=== PATIENT | female | born 1980 | race Caucasian/White ===

== ENCOUNTER 2021-07-22 16:35 | Inpatient (IN) | payer BC ==
--- NOTE | 2021-07-22 16:50 | EDM.PDOC ---
ED HPI GENERAL MEDICAL PROBLEM - General Chief Complaint: Respiratory Problem Stated Complaint: COVID + Time Seen by Provider: 07/22/21 16:50 Source of Information: Reports: Patient, Family History Limitations: Reports: No Limitations - History of Present Illness INITIAL COMMENTS - FREE TEXT/NARRATIVE: Marva, 40-year-old female, presents per pedis accompanied by her spouse to the emergency department with increasing shortness of breath, worsening symptoms with decrease in appetite and mild GI symptoms. She is known Covid 19 positive. Positive Covid test on the 16 July with symptoms developing on the . States she was seen in the [place] emergency department on the 19 July and was discharged home as there was no evidence of pneumonia and she was told things were in a normal perspective. Is not COVID-19 vaccinated General malaise with change in appetite no significant fever, low grade if any. Feels severe fatigue/weakness. 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 Treatments - Related Data Allergies Allergy/AdvReac Type Severity Reaction Status Date / Time bee pollen Allergy Hives Verified 07/22/21 16:46 venom-honey bee Allergy Hives Verified 07/22/21 16:46 [bee venom (honey bee)] Home Meds: Home Meds EPINEPHrine [Epipen] 0.3 mg IM ASDIRECTED PRN 11/21/17 [History] Acetaminophen [Tylenol] 650 mg PO Q4H PRN tablet 11/22/17 [Rx] Levothyroxine 175 mcg PO ACBREAKFAST #60 tablet 11/22/17 [Rx] Albuterol Sulfate [Albuterol Sulfate Hfa] 1 - 2 puff INH Q4HR PRN 07/19/21 [History] Benzonatate [Tessalon Perles] 100 mg PO ASDIRECTED PRN 07/19/21 [History] Ipratropium/Albuterol Sulfate [Iprat-Albut 0.5-3(2.5) MG/3 ML] 3 ml IH Q4HR PRN 07/19/21 [History] Naproxen Sodium [Aleve] 220 mg PO BID 07/19/21 [History] Past Medical History HEENT History: Reports: Impaired Vision, Other (See Below) Other HEENT History: Patient wears glasses and soft contact lenses Cardiovascular History: Reports: Arrhythmia, Other (See Below) Other Cardiovascular History: Reurrent tachycardia of unknown type or etiology. Repolarization changes with borderline incomplete right bundle branch block. 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: , Spontaneous Musculoskeletal History: Reports: None Neurological History: Reports: None Psychiatric History: Reports: Anxiety, Depression Endocrine/Metabolic History: Reports: Hyperthyroidism, Hypothyroidism, Other (See Below) Other Endocrine/Metabolic History: Treatment of hyperthyroidism with treatment as below in 2005 with secondary hypothyroidism Hematologic History: Reports: None Immunologic History: Reports: None Oncologic (Cancer) History: Reports: Other (See Below) Other Oncologic History: Unknown type of skin cancer on nose, 2005 Dermatologic History: Reports: Other (See Below) Other Dermatologic History: Acne vulgaris - Infectious Disease History Infectious Disease History: Reports: Chicken Pox, Shingles - Past Surgical History Head Surgeries/Procedures: Reports: None HEENT Surgical History: Reports: Oral Surgery, Other (See Below) Other HEENT Surgeries/Procedures: [place] teeth extraction at about age 10 Cardiovascular Surgical History: Reports: None Respiratory Surgical History: Reports: None GI Surgical History: Reports: None Female Surgical History: Reports: None Endocrine Surgical History: Reports: Other (See Below) Other Endocrine Surgeries/Procedures: Radioactive iodine treatment for hyperthyroidism in 2005 Neurological Surgical History: Reports: None Oncologic Surgical History: Reports: None Dermatological Surgical History: Reports: Other (See Below) - Past Imaging History Past Imaging History: Reports: Ultrasound, Other (See Below) (Thyroid ultrasound in 2005. Right upper quadrant ultrasound on 05/23/15). Denies: Event Monitor, Holter Monitor, Stress Testing Social & Family History - Family History Family Medical History: No Pertinent Family History HEENT: Reports: Glaucoma, Other (See Below) Other HEENT Family History: Maternal grandmother with glaucoma Cardiac: Reports: High Cholesterol Other Cardiac Family History: Maternal uncle with hyperlipidemia. Father and sister with hypertension Respiratory: Reports: Asthma, Other (See Below) Other Respiratory Family Hisory: Maternal grandmother with asthma GI: Reports: None : Reports: None OBGYN: Reports: None Musculoskeletal: Reports: None Neurological: Reports: Alzheimers Disease, Dementia, Other (See Below) Other Neurological Family History: Organic brain syndrome in paternal grandmother Psychiatric: Reports: None Endocrine/Metabolic: Reports: Diabetes, type II, IDDM, Other (See Below) Other Endocrine/Metabolic Family History: Paternal grandfather with IDDM Hematologic: Reports: Anemia, Transfusion Reaction Other Hematologic Family History: Maternal uncle with anemia and blood transfusions secondary to leukemia as below Immunologic: Reports: None Dermatologic: Reports: None Oncologic: Reports: Leukemia, Other (See Below) Other Oncologic Family History: Maternal uncle with fatal leukemia at age 74 - Tobacco Use Tobacco Use Status *Q: Former Tobacco User Tobacco Use Within Last Twelve Months: Cigarettes - Caffeine Use Caffeine Use: Reports: Coffee - Sexual History Sexual History: Reports: Sexually Active, Single Partner - Living Situation & Occupation Living situation: Reports: (Divorce in 2016 with one child from that relationship), with Significant Other Occupation: Employed ([employer]) ED ROS GENERAL - Review of Systems Review Of Systems: Comprehensive ROS is negative, except as noted in HPI. ED EXAM, GENERAL - Physical Exam Exam: See Below Free Text/Narrative:: Alert, oriented, in mild distress. There is no cyanosis nor pallor noted. There is no involvement of the auditory canals or tympanic membranes. [place] moist mucous membranes somewhat dry in comparison with no erythema nor exudate.. Neck is soft supple with no lymphadenopathy, no rigidity appreciated. Thorax is raspy mildly diminished bases with no wheezes nor crackles at this time. Cardiac is S1-S2 I do not appreciate murmur. There is no flank pain bowel sounds are present abdomen is irritated but no point tenderness. There is no edema to the lower extremities radial pulse correlates with apical heart rate and she is able to move about upon command. #1 Interpretation EKG Date: 07/22/21 Time: 17:21 Rhythm: NSR Rate (Beats/Min): 97 [place]: Normal P-Wave: Present QRS: Normal ST-T: Normal QT: Normal Comparison: No Change (rate change only) Course - Vital Signs Last Recorded V/S: Last Vital Signs Temp 97.7 F 07/22/21 20:16 Pulse 88 07/22/21 20:16 Resp 18 07/22/21 20:16 BP 100/73 07/22/21 20:16 Pulse Ox 98 07/22/21 20:16 - Orders/Labs/Meds Orders: Active Orders 24 hr Category Date Time Status Peripheral IV Care [RC] . DIRECTED Care 07/22/21 16:59 Active Sodium Chloride 0.9% [Saline Flush] Med 07/22/21 16:58 Active 10 ml FLUSH Q8HR PRN Peripheral IV Insertion Adult [OM.PC] Stat Oth 07/22/21 16:58 Ordered EKG 12 Lead [EK] Stat Ther 07/22/21 16:59 Ordered Medication Orders Acetaminophen (Acetaminophen 325 Mg Tab) 650 mg PO Q4H PRN PRN Reason: Pain (Mild 1-3)/fever Acetaminophen (Acetaminophen 325 Mg Tab) 650 mg PO Q4H PRN PRN Reason: Pain Albuterol (Albuterol 8 Gm Inhaler) gm INH Q4HR PRN PRN Reason: Shortness of Breath Benzonatate (Benzonatate 100 Mg Cap) 100 mg PO ASDIRECTED PRN PRN Reason: Cough Dexamethasone (Dexamethasone 10 Mg/Ml Sdv) 6 mg IVPUSH Q24H [facility] Enoxaparin Sodium (Enoxaparin 40 Mg/0.4 Ml Syringe) 40 mg SUBCUT DAILY [facility] Epinephrine HCl (Epinephrine 0.3 Mg/0.3 Ml Pen Autoinjector) 0.3 mg IM ASDIRECTED PRN PRN Reason: Bee Stings Sodium Chloride (Normal Saline) 1,000 mls @ 125 mls/hr IV ASDIRECTED REED Remdesivir 100 mg/ Sodium (Chloride) 250 mls @ 250 mls/hr IV Q24H [facility] Non-Formulary Medication (Levothyroxine [Levothyroxine]) 175 mcg PO ACBREAKFAST [facility] Ondansetron HCl (Ondansetron 4 Mg Tab.Dis) 8 mg PO Q6H PRN PRN Reason: nausea, able to take PO Sodium Chloride (Sodium Chloride 0.9% 10 Ml Syringe) 10 ml FLUSH Q8HR PRN PRN Reason: keep vein open Labs: Laboratory Tests 07/22/21 07/22/21 07/22/21 Range/Units 17:05 17:05 17:05 WBC 3.01 L (5.00-10.00) 10^3/uL RBC 4.98 (3.80-5.50) 10^6/uL Hgb 15.0 (12.0-16.0) g/dL Hct 45.7 (37.0-47.0) % MCV 91.8 (82.0-92.0) fL MCH 30.1 (27.0-31.0) pg MCHC 32.8 (32.0-36.0) g/dL RDW 11.7 (11.5-14.5) % Plt Count 125 L (150-400) 10^3/uL MPV 10.2 (7.4-10.4) fL Immature Gran % (Auto) 0.0 (0.0-5.0) % Neut % (Auto) 73.1 H (50.0-70.0) % Lymph % (Auto) 20.3 (20.0-40.0) % [place] % (Auto) 6.3 (2.0-8.0) % Eos % (Auto) 0.0 L (1.0-3.0) % Baso % (Auto) 0.3 (0.0-1.0) % Neut # (Auto) 2.20 L (2.50-7.00) 10^3/uL Lymph # (Auto) 0.61 L (1.00-4.00) 10^3/uL [place] # (Auto) 0.19 (0.10-0.80) 10^3/uL Eos # (Auto) 0.00 L (0.10-0.30) 10^3/uL Baso # (Auto) 0.01 (0.00-0.10) 10^3/uL Immature Gran # (Auto) 0.00 (0.00-0.50) 10^3/uL Atypical Lymphocytes Rare Toxic Granulation Few Platelet Estimate Decreased D-Dimer, Quantitative 451 H (<400) ng/mL Sodium 138 (136-145) mmol/L Potassium 3.9 (3.5-5.1) mmol/L Chloride 99 (98-107) mmol/L Carbon Dioxide 27.6 (21.0-32.0) mmol/L Anion Gap 15.3 H (5-15) mmol/L BUN 20 H (7-18) mg/dL Creatinine 0.92 (0.51-1.17) mg/dL Est Cr Clr Drug Dosing TNP Estimated GFR (MDRD) > 60 mL/min Glucose 104 (70-140) mg/dL Lactic Acid (0.4-2.0) mmol/L Calcium 7.5 L (8.7-10.3) mg/dL Total Bilirubin 0.4 (0.2-1.0) mg/dL AST 36 (15-37) U/L ALT 27 (14-63) U/L Alkaline Phosphatase 38 L (46-116) U/L Troponin I High Sens 5.700 (0-51.000) pg/mL Total Protein 6.5 (6.4-8.2) g/dL Albumin 2.81 L (3.40-5.00) g/dL 07/22/21 Range/Units 17:05 WBC (5.00-10.00) 10^3/uL RBC (3.80-5.50) 10^6/uL Hgb (12.0-16.0) g/dL Hct (37.0-47.0) % MCV (82.0-92.0) fL MCH (27.0-31.0) pg MCHC (32.0-36.0) g/dL RDW (11.5-14.5) % Plt Count (150-400) 10^3/uL MPV (7.4-10.4) fL Immature Gran % (Auto) (0.0-5.0) % Neut % (Auto) (50.0-70.0) % Lymph % (Auto) (20.0-40.0) % [place] % (Auto) (2.0-8.0) % Eos % (Auto) (1.0-3.0) % Baso % (Auto) (0.0-1.0) % Neut # (Auto) (2.50-7.00) 10^3/uL Lymph # (Auto) (1.00-4.00) 10^3/uL [place] # (Auto) (0.10-0.80) 10^3/uL Eos # (Auto) (0.10-0.30) 10^3/uL Baso # (Auto) (0.00-0.10) 10^3/uL Immature Gran # (Auto) (0.00-0.50) 10^3/uL Atypical Lymphocytes Toxic Granulation Platelet Estimate D-Dimer, Quantitative (<400) ng/mL Sodium (136-145) mmol/L Potassium (3.5-5.1) mmol/L Chloride (98-107) mmol/L Carbon Dioxide (21.0-32.0) mmol/L Anion Gap (5-15) mmol/L BUN (7-18) mg/dL Creatinine (0.51-1.17) mg/dL Est Cr Clr Drug Dosing Estimated GFR (MDRD) mL/min Glucose (70-140) mg/dL Lactic Acid 0.9 (0.4-2.0) mmol/L Calcium (8.7-10.3) mg/dL Total Bilirubin (0.2-1.0) mg/dL AST (15-37) U/L ALT (14-63) U/L Alkaline Phosphatase (46-116) U/L Troponin I High Sens (0-51.000) pg/mL Total Protein (6.4-8.2) g/dL Albumin (3.40-5.00) g/dL Meds: Medications Generic Name Dose Route Start Last Admin Trade Name Freq PRN Reason Stop Dose Admin Acetaminophen 650 mg 07/22/21 20:10 Acetaminophen 325 Mg Tab PO Q4H PRN Pain (Mild 1-3)/fever Acetaminophen 650 mg 07/22/21 21:12 Acetaminophen 325 Mg Tab PO Q4H PRN Pain Albuterol gm 07/22/21 21:12 Albuterol 8 Gm Inhaler INH Q4HR PRN Shortness of Breath Benzonatate 100 mg 07/22/21 21:12 Benzonatate 100 Mg Cap PO ASDIRECTED PRN Cough Dexamethasone 6 mg 07/22/21 20:15 Dexamethasone 10 Mg/Ml Sdv IVPUSH Q24H RE[facility] Enoxaparin Sodium 40 mg 07/22/21 20:15 Enoxaparin 40 Mg/0.4 Ml Syringe SUBCUT DAILY [facility] Epinephrine HCl 0.3 mg 07/22/21 21:12 Epinephrine 0.3 Mg/0.3 Ml Pen Autoinjector IM ASDIRECTED PRN Bee Stings Sodium Chloride 1,000 mls @ 125 mls/hr 07/22/21 20:15 Normal Saline IV ASDIRECTED REED Remdesivir 100 mg/ Sodium 250 mls @ 250 mls/hr 07/23/21 20:30 Chloride IV Q24H [facility] Non-Formulary Medication 175 mcg 07/23/21 07:30 Levothyroxine [Levothyroxine] PO ACBREAKFAST [facility] Ondansetron HCl 8 mg 07/22/21 20:10 Ondansetron 4 Mg Tab.Dis PO Q6H PRN nausea, able to take PO Sodium Chloride 10 ml 07/22/21 16:58 Sodium Chloride 0.9% 10 Ml Syringe FLUSH Q8HR PRN keep vein open Discontinued Medications Generic Name Dose Route Start Last Admin Trade Name Freq PRN Reason Stop Dose Admin Acetaminophen 1,000 mg 07/22/21 18:09 07/22/21 18:15 Acetaminophen 500 Mg Tab PO 07/22/21 18:10 1,000 mg ONETIME ONE Administration Sodium Chloride 1,000 mls @ 999 mls/hr 07/22/21 17:00 07/22/21 17:12 Normal Saline IV 07/22/21 18:00 999 mls/hr .BOLUS ONE Administration Remdesivir 200 mg/ Sodium 250 mls @ 250 mls/hr 07/22/21 20:18 Chloride IV 07/22/21 20:19 ONETIME ONE Departure - Departure Time of Disposition: 20:05 Disposition: Admitted As Inpatient 64 Condition: Fair Clinical Impression: Pneumonia due to COVID-19 virus, Hypoxia, COVID-19 COPD (chronic obstructive pulmonary disease) Qualifiers: COPD type: emphysema Emphysema type: panlobular Qualified Code(s): J43.1 - Panlobular emphysema - Discharge Information *PRESCRIPTION DRUG MONITORING PROGRAM REVIEWED*: Not Applicable *COPY OF PRESCRIPTION DRUG MONITORING REPORT IN PATIENT JEFF: Not Applicable Sepsis Event Note (ED) - Focused Exam Vital Signs: Vital Signs Temp Temp Pulse Resp BP Pulse Ox 07/22/21 19:20 97.2 F 83 18 106/64 95 07/22/21 19:05 85 18 102/64 88 L 07/22/21 18:15 100.5 F 07/22/21 18:02 100.9 F H 99 18 103/59 L 90 L 07/22/21 17:35 100.5 F 96 18 109/71 92 L 07/22/21 16:49 99.3 F 105 H 18 101/66 90 L - Problem List & Annotations (1) Cough SNOMED Code(s): 95715849 Code(s): R05.9 - COUGH, UNSPECIFIED Status: Acute Priority: High Current Visit: Yes (2) GI symptoms SNOMED Code(s): 367041097 Code(s): R19.8 - OTH SYMPTOMS AND SIGNS INVOLVING THE DGSTV SYS AND ABDOMEN Status: Acute Priority: High Current Visit: Yes (3) COVID-19 SNOMED Code(s): 304252518 Code(s): U07.1 - COVID-19 Status: Acute Priority: High Current Visit: Yes (4) COPD (chronic obstructive pulmonary disease) SNOMED Code(s): 94091080 Code(s): J44.9 - CHRONIC OBSTRUCTIVE PULMONARY DISEASE, UNSPECIFIED Status: Chronic Priority: Medium Current Visit: Yes Onset Date: ~11/21/17 Annotation/Comment:: Smoking cessation ? 3 weeks? Qualifiers: COPD type: emphysema Emphysema type: panlobular Qualified Code(s): J43.1 - Panlobular emphysema (5) Pneumonia due to COVID-19 virus SNOMED Code(s): 540569152049612758 Code(s): U07.1 - COVID-19; J12.82 - PNEUMONIA DUE TO CORONAVIRUS DISEASE 2019 Status: Acute Priority: High Current Visit: Yes (6) Hypoxia SNOMED Code(s): 757604262 Code(s): R09.02 - HYPOXEMIA Status: Acute Priority: High Current Visit: Yes - Problem List Review Problem List Initiated/Reviewed/Updated: Yes - My Orders Last 24 Hours: My Active Orders 07/22/21 16:58 Sodium Chloride 0.9% [Saline Flush] 10 ml FLUSH Q8HR PRN Peripheral IV Insertion Adult [OM.PC] Stat 07/22/21 16:59 Peripheral IV Care [RC] . DIRECTED EKG 12 Lead [EK] Stat - Assessment/Plan Admission H&P: Please use this note as an admission H&P Last 24 Hours: My Active Orders 07/22/21 16:58 Sodium Chloride 0.9% [Saline Flush] 10 ml FLUSH Q8HR PRN Peripheral IV Insertion Adult [OM.PC] Stat 07/22/21 16:59 Peripheral IV Care [RC] . DIRECTED EKG 12 Lead [EK] Stat Plan: .Discussion with Dr. Dockery will admit and institute remdesivir dexamethasone and enoxaparin
[2021-07-22] MEDS ORDERED: Sodium Chloride 0.9% 10 ML Syringe FLUSH PRN (16:58)
[2021-07-22] MEDS ORDERED: Sodium Chloride 0.9% 1,000 ML IV ONE (17:00)
[2021-07-22 17:40] LABS: ANION GAP 15.3 mmol/L (5-15); CHLORIDE,CL 99 mmol/L (98-107); SODIUM,NA 138 mmol/L (136-145)
--- NOTE | 2021-07-22 18:01 | CR ---
[id number] RAD/RAD Chest PA or AP 1V EXAM: FRONTAL CHEST INDICATION: COVID POSITIVE; POSITIVE TEST 07-16-2021. COMPARISON: None. DISCUSSION: Patchy bilateral basal predominant infiltrates consistent with the clinical history of COVID pneumonia. Normal heart size. No effusions. IMPRESSION: 1. Multifocal bilateral infiltrates. Josue Wilkinson MD 07/22/21 1390 Thank you for allowing us to participate in the care of your patient.
[2021-07-22] MEDS ORDERED: Acetaminophen 500 MG Tab PO ONE (18:09)
[2021-07-22] MEDS ORDERED: Ondansetron 4 MG Tab.DIS PO PRN (20:10)
[2021-07-22] MEDS ORDERED: Acetaminophen 325 MG Tab PO PRN ×2 (20:10→21:12)
[2021-07-22] MEDS ORDERED: REMDESIVIR 200 MG in Sodium Chloride 0.9% 250 ML IV ONE (20:18)
[2021-07-22] MEDS ORDERED: Nitroglycerin 0.4 MG Tab.SL SL PRN (20:30)
[2021-07-22] MEDS ORDERED: Atropine 0.1 MG/ML 10 ML Syringe IVPUSH PRN (20:30)
[2021-07-22] MEDS ORDERED: EPINEPHrine 1:10,000 1 MG/10 ML Syringe IVPUSH PRN (20:30)
[2021-07-22] MEDS ORDERED: Lidocaine 2% 100 MG/5 ML Syringe IVPUSH PRN (20:30)
[2021-07-22] MEDS ORDERED: Albuterol 8 GM Inhaler INH PRN (21:12)
[2021-07-22] MEDS ORDERED: Benzonatate 100 MG Cap PO PRN (21:12)
[2021-07-22] MEDS ORDERED: EPINEPHrine 0.3 MG/0.3 ML Pen Autoinjector IM PRN (21:12)
[2021-07-22] MEDS: Enoxaparin 40 MG/0.4 ML Syringe SUBCUT SCH (21:29)
[2021-07-22] MEDS: Dexamethasone 10 MG/ML SDV IVPUSH SCH (21:29)
[2021-07-22] MEDS: Sodium Chloride 0.9% 1,000 ML IV SCH (21:37)
[2021-07-23] MEDS: Sodium Chloride 0.9% 1,000 ML IV SCH ×3 (05:59→22:46)
[2021-07-23] MEDS ORDERED: Non-Formulary Medication 1 Each (Levothyroxine [Levothyroxine] 175 MCG Tablet) PO SCH (07:30)
[2021-07-23] MEDS: Levothyroxine 50 MCG Tab PO SCH (07:42)
[2021-07-23 08:16] LABS: ANION GAP 16.8 mmol/L (5-15); CHLORIDE,CL 106 mmol/L (98-107); SODIUM,NA 144 mmol/L (136-145)
[2021-07-23] MEDS: Enoxaparin 40 MG/0.4 ML Syringe SUBCUT SCH (11:15)
--- NOTE | 2021-07-23 12:03 | PCM.HP.2 ---
H&P History of Present Illness - General Date of Service: 07/23/21 Admit Problem/Dx: Admission Diagnosis/Problem Admission Diagnosis/Problem Pneumonia Source of Information: Patient - History of Present Illness Initial Comments - Free Text/Narative: 40 year old female admitted inpatient for COVID 19 pneumonia and hypoxia from ED on 07/22/2021. Symptoms started on 07/15/2021 and patient tested positive the following day. She had been doing ok at home when over the last 48 hours developed severe fatigue and some shortness of breath. She presented to the ED via personal car with who is also COVID positive and was subsequently admitted for hypoxia. - Related Data Allergies/Adverse Reactions: Allergies Allergy/AdvReac Type Severity Reaction Status Date / Time bee pollen Allergy Hives Verified 07/22/21 16:46 venom-honey bee Allergy Hives Verified 07/22/21 16:46 [bee venom (honey bee)] Home Medications: Home Meds EPINEPHrine [Epipen] 0.3 mg IM ASDIRECTED PRN 11/21/17 [History] Acetaminophen [Tylenol] 650 mg PO Q4H PRN tablet 11/22/17 [Rx] Levothyroxine 175 mcg PO ACBREAKFAST #60 tablet 11/22/17 [Rx] Albuterol Sulfate [Albuterol Sulfate Hfa] 1 - 2 puff INH Q4HR PRN 07/19/21 [History] Benzonatate [Tessalon Perles] 100 mg PO ASDIRECTED PRN 07/19/21 [History] Ipratropium/Albuterol Sulfate [Iprat-Albut 0.5-3(2.5) MG/3 ML] 3 ml IH Q4HR PRN 07/19/21 [History] Naproxen Sodium [Aleve] 220 mg PO BID 07/19/21 [History] Past Medical History HEENT History: Reports: Impaired Vision, Other (See Below) Other HEENT History: Patient wears glasses and soft contact lenses Cardiovascular History: Reports: Arrhythmia, Other (See Below) Other Cardiovascular History: Reurrent tachycardia of unknown type or etiology. Repolarization changes with borderline incomplete right bundle branch block. 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: , Spontaneous Musculoskeletal History: Reports: None Neurological History: Reports: None Psychiatric History: Reports: Anxiety, Depression Endocrine/Metabolic History: Reports: Hyperthyroidism, Hypothyroidism, Other (See Below) Other Endocrine/Metabolic History: Treatment of hyperthyroidism with treatment as below in 2006 with secondary hypothyroidism Hematologic History: Reports: None Immunologic History: Reports: None Oncologic (Cancer) History: Reports: Other (See Below) Other Oncologic History: Unknown type of skin cancer on nose, 2005 Dermatologic History: Reports: Other (See Below) Other Dermatologic History: Acne vulgaris - Infectious Disease History Infectious Disease History: Reports: Chicken Pox, Shingles - Past Surgical History Head Surgeries/Procedures: Reports: None HEENT Surgical History: Reports: Oral Surgery, Other (See Below) Other HEENT Surgeries/Procedures: Kinsey teeth extraction at about age 10 Cardiovascular Surgical History: Reports: None Respiratory Surgical History: Reports: None GI Surgical History: Reports: None Female Surgical History: Reports: None Endocrine Surgical History: Reports: Other (See Below) Other Endocrine Surgeries/Procedures: Radioactive iodine treatment for hyperthyroidism in 2005 Neurological Surgical History: Reports: None Oncologic Surgical History: Reports: None Dermatological Surgical History: Reports: Other (See Below) - Past Imaging History Past Imaging History: Reports: Ultrasound, Other (See Below) (Thyroid ultrasound in 2005. Right upper quadrant ultrasound on 05/23/15). Denies: Event Monitor, Holter Monitor, Stress Testing Social & Family History - Family History HEENT: Reports: Glaucoma, Other (See Below) Other HEENT Family History: Maternal grandmother with glaucoma Cardiac: Reports: High Cholesterol Other Cardiac Family History: Maternal uncle with hyperlipidemia. Father and sister with hypertension Respiratory: Reports: Asthma, Other (See Below) Other Respiratory Family Hisory: Maternal grandmother with asthma GI: Reports: None : Reports: None OBGYN: Reports: None Musculoskeletal: Reports: None Neurological: Reports: Alzheimers Disease, Dementia, Other (See Below) Other Neurological Family History: Organic brain syndrome in paternal grandmother Psychiatric: Reports: None Endocrine/Metabolic: Reports: Diabetes, type II, IDDM, Other (See Below) Other Endocrine/Metabolic Family History: Paternal grandfather with IDDM Hematologic: Reports: Anemia, Transfusion Reaction Other Hematologic Family History: Maternal uncle with anemia and blood transfusions secondary to leukemia as below Immunologic: Reports: None Dermatologic: Reports: None Oncologic: Reports: Leukemia, Other (See Below) Other Oncologic Family History: Maternal uncle with fatal leukemia at age 74 - Tobacco Use Tobacco Use Status *Q: Former Tobacco User Years of Tobacco use: 13 Packs/Tins Daily: 1 Used Tobacco, but Quit: Yes Month/Year Tobacco Last Used: 10 - Caffeine Use Caffeine Use: Reports: Coffee, Soda - Alcohol Use Days Per Week of Alcohol Use: 3 Number of Drinks Per Day: 3 Total Drinks Per Week: 9 - Recreational Drug Use Recreational Drug Use: No - Sexual History Sexual History: Reports: Sexually Active, Single Partner - Living Situation & Occupation Living situation: Reports: (Divorce in 2016 with one child from that relationship), with Significant Other Occupation: Employed ([employer]) H&P Review of Systems - Review of Systems: Review Of Systems: See Below Free Text/Narrative: Patient reports some improvement overnight, especially with the oxygen in place. General: Reports: Chills, Weakness, Fatigue, Decreased Appetite. Denies: Fever HEENT: Reports: Headaches, Sore Throat. Denies: Ear Pain Pulmonary: Reports: Shortness of Breath (when not on oxygen), Wheezing, Cough Cardiovascular: Denies: Chest Pain, Palpitations, Edema Gastrointestinal: Reports: Decreased Appetite. Denies: Abdominal Pain, Bloody Stool, Constipation, Diarrhea, Nausea, Vomiting Genitourinary: Denies: Dysuria, Frequency, Urgency, Hematuria Musculoskeletal: Denies: Neck Pain, Back Pain, Joint Swelling Skin: Denies: Pallor, Bruising, Rash Psychiatric: Denies: Confusion, Depression, Anxiety Exam - Exam Exam: See Below - Vital Signs Vital Signs: Last Vital Signs Temp 35.8 C L 07/23/21 06:06 Pulse 71 07/23/21 06:06 Resp 22 H 07/23/21 06:06 BP 96/67 07/23/21 06:06 Pulse Ox 92 L 07/23/21 06:06 Weight: 57.209 kg - Exam Physical Exam Comments:: GENERAL: Ill-appearing adult in no acute distress. HEENT: Normocephalic, atraumatic. Conjunctiva clear. Nares patent without discharge. Mucous membranes dry, posterior pharynx unremarkable. NECK: Supple, no masses. CV: Regular rate and rhythm, no murmurs, rubs, or gallops. 2+ radial pulses. PULMONARY: Normal effort, diminished with crackles mid to bases bilaterally. There are expiratory wheezes noted in the upper airways. Nasal cannula 3L ABDOMEN: Positive bowel sounds, soft, nontender, nondistended. EXTREMITIES: No edema, cyanosis, or clubbing. MUSCULOSKELETAL: Moves all extremities well. NEUROLOGICAL: No obvious deficits. DERMATOLOGIC: No rashes or suspicious lesions in exposed areas. PSYCHIATRIC: Alert, interactive, appropriate affect. - Patient Data Lab Results Last 24 hrs: Laboratory Results - last 24 hr 07/22/21 07/22/21 07/22/21 Range/Units 17:05 17:05 17:05 WBC 3.01 L (5.00-10.00) 10^3/uL RBC 4.98 (3.80-5.50) 10^6/uL Hgb 15.0 (12.0-16.0) g/dL Hct 45.7 (37.0-47.0) % MCV 91.8 (82.0-92.0) fL MCH 30.1 (27.0-31.0) pg MCHC 32.8 (32.0-36.0) g/dL RDW 11.7 (11.5-14.5) % Plt Count 125 L (150-400) 10^3/uL MPV 10.2 (7.4-10.4) fL Immature Gran % (Auto) 0.0 (0.0-5.0) % Neut % (Auto) 73.1 H (50.0-70.0) % Lymph % (Auto) 20.3 (20.0-40.0) % [place] % (Auto) 6.3 (2.0-8.0) % Eos % (Auto) 0.0 L (1.0-3.0) % Baso % (Auto) 0.3 (0.0-1.0) % Neut # (Auto) 2.20 L (2.50-7.00) 10^3/uL Lymph # (Auto) 0.61 L (1.00-4.00) 10^3/uL [place] # (Auto) 0.19 (0.10-0.80) 10^3/uL Eos # (Auto) 0.00 L (0.10-0.30) 10^3/uL Baso # (Auto) 0.01 (0.00-0.10) 10^3/uL Immature Gran # (Auto) 0.00 (0.00-0.50) 10^3/uL Atypical Lymphocytes Rare Toxic Granulation Few Platelet Estimate Decreased D-Dimer, Quantitative 451 H (<400) ng/mL Sodium 138 (136-145) mmol/L Potassium 3.9 (3.5-5.1) mmol/L Chloride 99 (98-107) mmol/L Carbon Dioxide 27.6 (21.0-32.0) mmol/L Anion Gap 15.3 H (5-15) mmol/L BUN 20 H (7-18) mg/dL Creatinine 0.92 (0.51-1.17) mg/dL Est Cr Clr Drug Dosing TNP Estimated GFR (MDRD) > 60 mL/min Glucose 104 (70-140) mg/dL Lactic Acid (0.4-2.0) mmol/L Calcium 7.5 L (8.7-10.3) mg/dL Total Bilirubin 0.4 (0.2-1.0) mg/dL AST 36 (15-37) U/L ALT 27 (14-63) U/L Alkaline Phosphatase 38 L (46-116) U/L Troponin I High Sens 5.700 (0-51.000) pg/mL Total Protein 6.5 (6.4-8.2) g/dL Albumin 2.81 L (3.40-5.00) g/dL 07/22/21 07/23/21 07/23/21 Range/Units 17:05 07:25 07:25 WBC 1.49 L* (5.00-10.00) 10^3/uL RBC 4.68 (3.80-5.50) 10^6/uL Hgb 14.2 (12.0-16.0) g/dL Hct 43.3 (37.0-47.0) % MCV 92.5 H (82.0-92.0) fL MCH 30.3 (27.0-31.0) pg MCHC 32.8 (32.0-36.0) g/dL RDW 11.6 (11.5-14.5) % Plt Count 111 L (150-400) 10^3/uL MPV 10.4 (7.4-10.4) fL Immature Gran % (Auto) 0.7 (0.0-5.0) % Neut % (Auto) 66.4 (50.0-70.0) % Lymph % (Auto) 26.2 (20.0-40.0) % [place] % (Auto) 6.0 (2.0-8.0) % Eos % (Auto) 0.0 L (1.0-3.0) % Baso % (Auto) 0.7 (0.0-1.0) % Neut # (Auto) 0.99 L (2.50-7.00) 10^3/uL Lymph # (Auto) 0.39 L (1.00-4.00) 10^3/uL [place] # (Auto) 0.09 L (0.10-0.80) 10^3/uL Eos # (Auto) 0.00 L (0.10-0.30) 10^3/uL Baso # (Auto) 0.01 (0.00-0.10) 10^3/uL Immature Gran # (Auto) 0.01 (0.00-0.50) 10^3/uL Atypical Lymphocytes Toxic Granulation Platelet Estimate Decreased D-Dimer, Quantitative (<400) ng/mL Sodium 144 (136-145) mmol/L Potassium 3.7 (3.5-5.1) mmol/L Chloride 106 (98-107) mmol/L Carbon Dioxide 24.9 (21.0-32.0) mmol/L Anion Gap 16.8 H (5-15) mmol/L BUN 18 (7-18) mg/dL Creatinine 0.56 (0.51-1.17) mg/dL Est Cr Clr Drug Dosing 117.76 Estimated GFR (MDRD) > 60 mL/min Glucose 126 (70-140) mg/dL Lactic Acid 0.9 (0.4-2.0) mmol/L Calcium 6.9 L (8.7-10.3) mg/dL Total Bilirubin 0.2 (0.2-1.0) mg/dL AST 47 H (15-37) U/L ALT 32 (14-63) U/L Alkaline Phosphatase 34 L (46-116) U/L Troponin I High Sens (0-51.000) pg/mL Total Protein 5.8 L (6.4-8.2) g/dL Albumin 2.34 L (3.40-5.00) g/dL Result Diagrams: 07/23/21 07:25 07/23/21 07:25 Sepsis Event Note - Evaluation Sepsis Screening Result: No Definite Risk - Focused Exam Vital Signs: Vital Signs Temp Pulse Resp BP Pulse Ox 07/23/21 06:06 35.8 C L 71 22 H 96/67 92 L 07/23/21 03:00 35.4 C L 66 18 96/60 90 L Problem List Initiated/Reviewed/Updated: Yes Orders Last 24hrs: Active Orders 24 hr Category Date Time Status Patient Status [ADT] Routine ADT 07/22/21 20:06 Active Cardiac Monitoring [RC] 07,11,15,19,23,03 Care 07/22/21 20:06 Active Intake and Output [RC] 1400,2200,0600 Care 07/22/21 20:10 Active Oxygen Therapy [RC] .PRN Care 07/22/21 20:10 Active Peripheral IV Care [RC] . DIRECTED Care 07/22/21 16:59 Active RT Post Treatment Assessment [RC] Click to Edit Care 07/22/21 21:14 Active RT Pre-Treatment Assessment [RC] Click to Edit Care 07/22/21 21:14 Active Up With Assistance [RC] ASDIRECTED Care 07/22/21 20:10 Active Vital Signs [RC] 03,07,11,15,19,23 Care 07/22/21 20:10 Active CBC WITH AUTO DIFF [HEME] AM Lab 07/24/21 05:11 Ordered CMP [COMPREHENSIVE METABOLIC PN,CMP] [CHEM] AM Lab 07/24/21 05:11 Ordered CRP [C-REACTIVE PROTEIN] [CHEM] AM Lab 07/24/21 05:11 Ordered MAGNESIUM [CHEM] AM Lab 07/24/21 05:11 Ordered PROCALCITONIN [REF] Routine Lab 07/23/21 11:58 Ordered Acetaminophen [TylenoL] Med 07/22/21 21:12 Active 650 mg PO Q4H PRN Albuterol [Ventolin HFA] Med 07/23/21 01:45 Active 0 gm INH Q4H PRN Ascorbic Acid [Vitamin C] Med 07/23/21 12:00 Ordered 1,000 mg PO BID Atropine [Atropine 0.1 MG/ML] Med 07/22/21 20:30 Active 0.5 - 1 mg IVPUSH ASDIRECTED PRN Benzonatate [Tessalon Perles] Med 07/22/21 21:12 Active 100 mg PO ASDIRECTED PRN Cholecalciferol (Vitamin D3) [Vitamin D3] Med 07/23/21 12:00 Ordered 25 mcg PO DAILY EPINEPHrine [EPINEPHrine 1:10,000] Med 07/22/21 20:30 Active 1 mg IVPUSH ASDIRECTED PRN EPINEPHrine [Epipen] Med 07/22/21 21:12 Active 0.3 mg IM ASDIRECTED PRN Enoxaparin [Lovenox] Med 07/22/21 20:15 Active 40 mg SUBCUT DAILY Levothyroxine [Synthroid] Med 07/23/21 07:30 Active 175 mcg PO ACBREAKFAST Lidocaine 2% [Xylocaine 2%] Med 07/22/21 20:30 Active See Dose Instructions IVPUSH ASDIRECTED PRN Nitroglycerin [Nitrostat] Med 07/22/21 20:30 Active 0.4 mg SL ASDIRECTED PRN Ondansetron [Zofran ODT] Med 07/22/21 20:10 Active 8 mg PO Q6H PRN Remdesivir 100 mg Med 07/23/21 20:30 Active Sodium Chloride 0.9% [Normal Saline] 250 ml IV Q24H Sodium Chloride 0.9% [Normal Saline] 1,000 ml Med 07/22/21 20:15 Active IV ASDIRECTED Sodium Chloride 0.9% [Saline Flush] Med 07/22/21 16:58 Active 10 ml FLUSH Q8HR PRN Zinc Gluconate [Zinc] Med 07/23/21 12:00 Ordered 50 mg PO DAILY dexAMETHasone [Decadron] Med 07/22/21 20:15 Active 6 mg IVPUSH Q24H Peripheral IV Insertion Adult [OM.PC] Stat Oth 07/22/21 16:58 Ordered Resuscitation Status Routine Resus Stat 07/22/21 20:10 Ordered EKG 12 Lead [EK] Stat Ther 07/22/21 16:59 Ordered Medication Orders Acetaminophen (Acetaminophen 325 Mg Tab) 650 mg PO Q4H PRN PRN Reason: Pain Albuterol (Albuterol 8 Gm Inhaler) 0 gm INH Q4H PRN PRN Reason: Shortness of Breath Atropine Sulfate (Atropine 0.1 Mg/Ml 10 Ml Syringe) 0.5 - 1 mg IVPUSH A SDIRECTED PRN PRN Reason: Heart. Benzonatate (Benzonatate 100 Mg Cap) 100 mg PO ASDIRECTED PRN PRN Reason: Cough Dexamethasone (Dexamethasone 10 Mg/Ml Sdv) 6 mg IVPUSH Q24H [facility] Last Admin: 07/22/21 21:29 Dose: 6 mg Documented by: CINTHIA Enoxaparin Sodium (Enoxaparin 40 Mg/0.4 Ml Syringe) 40 mg SUBCUT DAILY [facility] Last Admin: 07/23/21 11:15 Dose: 40 mg Documented by: Admin: 07/22/21 21:29 Dose: 40 mg Documented by: CINTHIA Epinephrine HCl (Epinephrine 0.3 Mg/0.3 Ml Pen Autoinjector) 0.3 mg IM ASDIRECTED PRN PRN Reason: Bee Stings Epinephrine HCl (Epinephrine 1:10,000 1 Mg/10 Ml Syringe) 1 mg IVPUSH ASDIRECTED PRN PRN Reason: Heart. Sodium Chloride (Normal Saline) 1,000 mls @ 125 mls/hr IV ASDIRECTED [facility] Last Admin: 07/23/21 05:59 Dose: 125 mls/hr Documented by: Infusion: 07/23/21 05:37 Dose: 125 mls/hr Documented by: Admin: 07/22/21 21:37 Dose: 125 mls/hr Documented by: CINTHIA Remdesivir 100 mg/ Sodium (Chloride) 250 mls @ 250 mls/hr IV Q24H [facility] Stop: 07/26/21 20:31 Levothyroxine Sodium (Levothyroxine 50 Mcg Tab) 175 mcg PO ACBREAKFAST [facility] Last Admin: 07/23/21 07:42 Dose: 175 mcg Documented by: JOSEFA Lidocaine HCl (Lidocaine 2% 100 Mg/5 Ml Syringe) 0 mg IVPUSH ASDIRECTED PRN PRN Reason: Heart. Nitroglycerin (Nitroglycerin 0.4 Mg Tab.Sl) 0.4 mg SL ASDIRECTED PRN PRN Reason: Heart. Ondansetron HCl (Ondansetron 4 Mg Tab.Dis) 8 mg PO Q6H PRN PRN Reason: nausea, able to take PO Sodium Chloride (Sodium Chloride 0.9% 10 Ml Syringe) 10 ml FLUSH Q8HR PRN PRN Reason: keep vein open Assessment/Plan Comment:: HPI summary: 40 year old female admitted inpatient for COVID 19 pneumonia and hypoxia from ED on 07/22/2021. Symptoms started on 07/15/2021 and patient tested positive the following day. She had been doing ok at home when over the last 48 hours developed severe fatigue and some shortness of breath. She presented to the ED via personal car with who is also COVID positive and was subsequently admitted for hypoxia. No COVID vaccine. Did not receive antibody infusion. ED course: -VS: T97.2, P 83, R18, BP 106/64, O2 sat 88%/RA; oxygen started -EKG: NSR -Lab: WBC 3.01, RBC 4.98, Hgb 15, Hct 45.7, Plt 125, Neut 73.1%, D-dimer 451, Na 138, K 3.9, Cl 99, Co2 27.6, anion gap 15.3, BUN 20, cr 0.92, GFR >60, lactic 0.9, Ca 7.5, LFT unremarkable, Alb 2.81 -CXR: multifocal bilateral infiltrates -NS 1000mL bolus -Remdesivir, Dexamethasone and enoxaparin initiated Hospital course: 07/23/2021: No overnight concerns per patient. Shortness of breath improving. Has begun eating and drinking. Decreased taste/smell. Afebrile. 92% on 3L/NC . WBC 1.49, Plt 111, anion gap 16.8, Ca 6.9, AST 47. Procalcitonin pending. Leukopenia and thrombocytopenia will be followed. Hospitalization problems and plan: # Acute hypoxic respiratory failure, R/T COVID 19 pneumonia - oxygen - albuterol inhaler - Remdesivir, dexamethasone, oral ondansetron - oral zinc, vit C and vit D - CMP, CRP, Mg in AM # Elevated D-dimer, mild 451, Wells score for PE 1.5 low risk - continue enoxaparin for now, monitor platelets - CBC in AM # Leukopenia # Thrombocytopenia # Hypothyroidism; per chart review last TSH 05/15/2021 was 14.71 - continue levothyroxine - recheck TSH in AM Chronic, stable conditions: # none Hospitalization details: # FEN: patient appears dry on exam continue NS 125mL/hr; electrolytes stable; tolerating oral intake # PPX: enoxaparin, monitor platelets # Code status: Full # Emergency contact: Andi spouse # Disposition: home after course of remdesivir, approx four midnights - Mortality Measure Prognosis:: Good
[2021-07-23] MEDS: Ascorbic Acid 500 MG Tab PO SCH ×2 (13:10→20:27)
[2021-07-23] MEDS: Cholecalciferol (Vitamin D3) 25 MCG Tab PO SCH (13:10)
[2021-07-23] MEDS: Zinc (Zinc Gluconate) 50 MG Tab PO SCH (13:10)
[2021-07-23] MEDS: Dexamethasone 10 MG/ML SDV IVPUSH SCH (20:21)
[2021-07-23] MEDS: REMDESIVIR 100 MG in Sodium Chloride 0.9% 250 ML IV SCH (20:27)
[2021-07-24] MEDS: Albuterol 8 GM Inhaler INH PRN ×2 (03:44→20:36)
[2021-07-24] MEDS: Levothyroxine 50 MCG Tab PO SCH ×2 (06:22→06:45)
[2021-07-24] MEDS: Sodium Chloride 0.9% 1,000 ML IV SCH (06:24)
[2021-07-24] MEDS: Ascorbic Acid 500 MG Tab PO SCH ×2 (08:55→20:38)
[2021-07-24] MEDS: Cholecalciferol (Vitamin D3) 25 MCG Tab PO SCH (08:55)
[2021-07-24] MEDS: Enoxaparin 40 MG/0.4 ML Syringe SUBCUT SCH (08:55)
[2021-07-24] MEDS: Zinc (Zinc Gluconate) 50 MG Tab PO SCH (08:56)
[2021-07-24 09:07] LABS: CHLORIDE,CL 107 mmol/L (98-107); SODIUM,NA 141 mmol/L (136-145)
--- NOTE | 2021-07-24 10:09 | PCM.PN ---
- General Info Date of Service: 07/24/21 Subjective Update: Patient reports pain over the anterior right lower chest with deep breaths, states this has been present for a while now. She denies abdominal pain or any other new symptoms. - Review of Systems Systems Review Comment:: General: Reports: Weakness, Fatigue, Decreased Appetite HEENT: Reports: Headaches, Sore Throat Pulmonary: Reports: Pleuritic chest pain over the anterior right lower chest, on supplemental oxygen, Cough Cardiovascular: Denies: Chest Pain, Palpitations, Edema Gastrointestinal: Reports: Decreased Appetite. Denies: Abdominal Pain, Bloody Stool, Constipation, Diarrhea, Nausea, Vomiting Genitourinary: Denies: Dysuria, Frequency, Urgency, Hematuria Musculoskeletal: Denies: Neck Pain, Back Pain, Joint Swelling Skin: Denies: Pallor, Bruising, Rash Psychiatric: Anxiety intermittently. Denies: Confusion, Depression - Patient Data Vitals - Most Recent: Last Vital Signs Temp 97.4 F 07/24/21 06:26 Pulse 80 07/24/21 06:26 Resp 20 07/24/21 06:26 BP 112/73 07/24/21 06:26 Pulse Ox 91 L 07/24/21 06:26 Weight - Most Recent: 126 lb 2 oz I&O - Last 24 Hours: Intake & Output 07/23/21 07/24/21 07/24/21 22:59 06:59 14:59 Intake Total 848 1932 Output Total 400 700 Balance 448 1232 Lab Results Last 24 Hours: Laboratory Results - last 24 hr 07/24/21 07/24/21 Range/Units 07:00 07:25 WBC 3.71 L (5.00-10.00) 10^3/uL RBC 4.74 (3.80-5.50) 10^6/uL Hgb 14.5 (12.0-16.0) g/dL Hct 43.4 (37.0-47.0) % MCV 91.6 (82.0-92.0) fL MCH 30.6 (27.0-31.0) pg MCHC 33.4 (32.0-36.0) g/dL RDW 11.7 (11.5-14.5) % Plt Count 157 (150-400) 10^3/uL MPV 10.2 (7.4-10.4) fL Immature Gran % (Auto) 0.5 (0.0-5.0) % Neut % (Auto) 79.8 H (50.0-70.0) % Lymph % (Auto) 14.6 L (20.0-40.0) % Garden % (Auto) 5.1 (2.0-8.0) % Eos % (Auto) 0.0 L (1.0-3.0) % Baso % (Auto) 0.0 (0.0-1.0) % Neut # (Auto) 2.96 (2.50-7.00) 10^3/uL Lymph # (Auto) 0.54 L (1.00-4.00) 10^3/uL Garden # (Auto) 0.19 (0.10-0.80) 10^3/uL Eos # (Auto) 0.00 L (0.10-0.30) 10^3/uL Baso # (Auto) 0.00 (0.00-0.10) 10^3/uL Immature Gran # (Auto) 0.02 (0.00-0.50) 10^3/uL Sodium 141 (136-145) mmol/L Potassium 3.8 (3.5-5.1) mmol/L Chloride 107 (98-107) mmol/L Carbon Dioxide 24.8 (21.0-32.0) mmol/L Anion Gap 13.0 (5-15) mmol/L BUN 12 (7-18) mg/dL Creatinine 0.47 L (0.51-1.17) mg/dL Est Cr Clr Drug Dosing 140.31 mL/min Estimated GFR (MDRD) > 60 mL/min Glucose 119 (70-140) mg/dL Calcium 7.2 L (8.7-10.3) mg/dL Magnesium 2.0 (1.8-2.4) mg/dL Total Bilirubin 0.2 (0.2-1.0) mg/dL AST 36 (15-37) U/L ALT 31 (14-63) U/L Alkaline Phosphatase 34 L (46-116) U/L C-Reactive Protein 1.3 H (0.0-0.9) mg/dL Total Protein 5.7 L (6.4-8.2) g/dL Albumin 2.30 L (3.40-5.00) g/dL TSH, Ultra Sensitive 3.667 (0.340-4.820) uIU/mL Med Orders - Current: Current Medications Acetaminophen (Acetaminophen 325 Mg Tab) 650 mg PO Q4H PRN PRN Reason: Pain Albuterol (Albuterol 8 Gm Inhaler) 0 gm INH Q4H PRN PRN Reason: Shortness of Breath Last Admin: 07/24/21 03:44 Dose: 2 puff Documented by: Ascorbic Acid (Ascorbic Acid 500 Mg Tab) 1,000 mg PO BID [facility] Last Admin: 07/24/21 08:55 Dose: 1,000 mg Documented by: Atropine Sulfate (Atropine 0.1 Mg/Ml 10 Ml Syringe) 0.5 - 1 mg IVPUSH ASDIRECTED PRN PRN Reason: Heart. Benzonatate (Benzonatate 100 Mg Cap) 100 mg PO ASDIRECTED PRN PRN Reason: Cough Cholecalciferol (Cholecalciferol (Vitamin D3) 25 Mcg Tab) 25 mcg PO DAILY [facility] Last Admin: 07/24/21 08:55 Dose: 25 mcg Documented by: Dexamethasone (Dexamethasone 10 Mg/Ml Sdv) 6 mg IVPUSH Q24H [facility] Last Admin: 07/23/21 20:21 Dose: 6 mg Documented by: Enoxaparin Sodium (Enoxaparin 40 Mg/0.4 Ml Syringe) 40 mg SUBCUT DAILY [facility] Last Admin: 07/24/21 08:55 Dose: 40 mg Documented by: Epinephrine HCl (Epinephrine 0.3 Mg/0.3 Ml Pen Autoinjector) 0.3 mg IM ASDIRECTED PRN PRN Reason: Bee Stings Epinephrine HCl (Epinephrine 1:10,000 1 Mg/10 Ml Syringe) 1 mg IVPUSH ASDIRECTED PRN PRN Reason: Heart. Sodium Chloride (Normal Saline) 1,000 mls @ 125 mls/hr IV ASDIRECTED [facility] Last Admin: 07/24/21 06:24 Dose: 125 mls/hr Documented by: Remdesivir 100 mg/ Sodium (Chloride) 250 mls @ 250 mls/hr IV Q24H [facility] Stop: 07/26/21 20:31 Last Admin: 07/23/21 20:27 Dose: 250 mls/hr Documented by: Levothyroxine Sodium (Levothyroxine 50 Mcg Tab) 175 mcg PO ACBREAKFAST REED Last Admin: 07/24/21 06:45 Dose: Not Given Documented by: Lidocaine HCl (Lidocaine 2% 100 Mg/5 Ml Syringe) 0 mg IVPUSH ASDIRECTED PRN PRN Reason: Heart. Nitroglycerin (Nitroglycerin 0.4 Mg Tab.Sl) 0.4 mg SL ASDIRECTED PRN PRN Reason: Heart. Ondansetron HCl (Ondansetron 4 Mg Tab.Dis) 8 mg PO Q6H PRN PRN Reason: nausea, able to take PO Sodium Chloride (Sodium Chloride 0.9% 10 Ml Syringe) 10 ml FLUSH Q8HR PRN PRN Reason: keep vein open Zinc Gluconate (Zinc (Zinc Gluconate) 50 Mg Tab) 50 mg PO DAILY [facility] Last Admin: 07/24/21 08:56 Dose: 50 mg Documented by: Discontinued Medications Acetaminophen (Acetaminophen 500 Mg Tab) 1,000 mg PO ONETIME ONE Stop: 07/22/21 18:10 Last Admin: 07/22/21 18:15 Dose: 1,000 mg Documented by: Acetaminophen (Acetaminophen 325 Mg Tab) 650 mg PO Q4H PRN PRN Reason: Pain (Mild 1-3)/fever Sodium Chloride (Normal Saline) 1,000 mls @ 999 mls/hr IV .BOLUS ONE Stop: 07/22/21 18:00 Last Admin: 07/22/21 17:12 Dose: 999 mls/hr Documented by: Remdesivir 200 mg/ Sodium (Chloride) 250 mls @ 250 mls/hr IV ONETIME ONE Stop: 07/22/21 20:19 Last Admin: 07/22/21 21:35 Dose: 250 mls/hr Documented by: Non-Formulary Medication (Levothyroxine [Levothyroxine]) 175 mcg PO ACBREAKFAST [facility] - Exam Physical Findings Comments:: GENERAL: Patient resting in bed, in no acute distress. HEENT: Normocephalic, atraumatic. Conjunctiva clear. Nares patent without discharge. Mucous membranes moist, posterior pharynx unremarkable. NECK: Supple, no masses. CV: Regular rate and rhythm, no murmurs, rubs, or gallops. 2+ radial pulses. PULMONARY: On 6L supplemental Oxygen, Normal effort, diminished breath sounds bilaterally. ABDOMEN: Positive bowel sounds, soft, nontender, nondistended. EXTREMITIES: No edema, cyanosis, or clubbing. MUSCULOSKELETAL: Moves all extremities well. NEUROLOGICAL: No obvious deficits. DERMATOLOGIC: No rashes or suspicious lesions in exposed areas. PSYCHIATRIC: Alert, interactive, appropriate affect. - Patient Data Lab Results Last 24 hrs: Laboratory Results - last 24 hr 07/24/21 07/24/21 Range/Units 07:00 07:25 WBC 3.71 L (5.00-10.00) 10^3/uL RBC 4.74 (3.80-5.50) 10^6/uL Hgb 14.5 (12.0-16.0) g/dL Hct 43.4 (37.0-47.0) % MCV 91.6 (82.0-92.0) fL MCH 30.6 (27.0-31.0) pg MCHC 33.4 (32.0-36.0) g/dL RDW 11.7 (11.5-14.5) % Plt Count 157 (150-400) 10^3/uL MPV 10.2 (7.4-10.4) fL Immature Gran % (Auto) 0.5 (0.0-5.0) % Neut % (Auto) 79.8 H (50.0-70.0) % Lymph % (Auto) 14.6 L (20.0-40.0) % Garden % (Auto) 5.1 (2.0-8.0) % Eos % (Auto) 0.0 L (1.0-3.0) % Baso % (Auto) 0.0 (0.0-1.0) % Neut # (Auto) 2.96 (2.50-7.00) 10^3/uL Lymph # (Auto) 0.54 L (1.00-4.00) 10^3/uL Garden # (Auto) 0.19 (0.10-0.80) 10^3/uL Eos # (Auto) 0.00 L (0.10-0.30) 10^3/uL Baso # (Auto) 0.00 (0.00-0.10) 10^3/uL Immature Gran # (Auto) 0.02 (0.00-0.50) 10^3/uL Sodium 141 (136-145) mmol/L Potassium 3.8 (3.5-5.1) mmol/L Chloride 107 (98-107) mmol/L Carbon Dioxide 24.8 (21.0-32.0) mmol/L Anion Gap 13.0 (5-15) mmol/L BUN 12 (7-18) mg/dL Creatinine 0.47 L (0.51-1.17) mg/dL Est Cr Clr Drug Dosing 140.31 mL/min Estimated GFR (MDRD) > 60 mL/min Glucose 119 (70-140) mg/dL Calcium 7.2 L (8.7-10.3) mg/dL Magnesium 2.0 (1.8-2.4) mg/dL Total Bilirubin 0.2 (0.2-1.0) mg/dL AST 36 (15-37) U/L ALT 31 (14-63) U/L Alkaline Phosphatase 34 L (46-116) U/L C-Reactive Protein 1.3 H (0.0-0.9) mg/dL Total Protein 5.7 L (6.4-8.2) g/dL Albumin 2.30 L (3.40-5.00) g/dL TSH, Ultra Sensitive 3.667 (0.340-4.820) uIU/mL Result Diagrams: 07/24/21 07:25 07/24/21 07:00 Sepsis Event Note - Evaluation Sepsis Screening Result: No Definite Risk - Focused Exam Vital Signs: Vital Signs Temp Pulse Resp BP Pulse Ox Pulse Ox 07/24/21 06:26 97.4 F 80 20 112/73 91 L 07/24/21 04:39 70 07/24/21 04:35 90 L 07/24/21 03:30 96 F L 70 20 113/82 91 L 07/24/21 02:30 95 07/23/21 22:38 97.6 F 84 18 128/84 91 L - Problem List Review Problem List Initiated/Reviewed/Updated: Yes - Plan Plan:: HPI summary: 40 year old female admitted inpatient for COVID 19 pneumonia and hypoxia from ED on 07/22/2021. Symptoms started on 07/15/2021 and patient tested positive the following day. She had been doing ok at home when over the last 48 hours developed severe fatigue and some shortness of breath. She presented to the ED via personal car with who is also COVID positive and was subsequently admitted for hypoxia. No COVID vaccine. Did not receive antibody infusion. ED course: -VS: T97.2, P 83, R18, BP 106/64, O2 sat 88%/RA; oxygen started -EKG: NSR -Lab: WBC 3.01, RBC 4.98, Hgb 15, Hct 45.7, Plt 125, Neut 73.1%, D-dimer 451, Na 138, K 3.9, Cl 99, Co2 27.6, anion gap 15.3, BUN 20, cr 0.92, GFR >60, lactic 0.9, Ca 7.5, LFT unremarkable, Alb 2.81 -CXR: multifocal bilateral infiltrates -NS 1000mL bolus -Remdesivir, Dexamethasone and enoxaparin initiated Hospital course: 07/23/2021: No overnight concerns per patient. Shortness of breath improving. Has begun eating and drinking. Decreased taste/smell. Afebrile. 92% on 3L/NC. WBC 1.49, Plt 111, anion gap 16.8, Ca 6.9, AST 47. Procalcitonin pending. Leukopenia and thrombocytopenia will be followed. 07/24/2021: Afebrile. Patient has been requiring 6L supplemental oxygen since last evening, satting at 91%. Repeat chest xray pending. IVF at 125ml/hr discontinued. Has not been consuming adequate oral hydration, advised to increase oral hydration. Anion gap normalized. WBC improving and plt within normal limits. TSH within normal limits. Hospitalization problems and plan: # Acute hypoxic respiratory failure, R/T COVID 19 pneumonia - oxygen, up to 6L since 07/23 evening - albuterol inhaler - Remdesivir, dexamethasone, oral ondansetron - oral zinc, vit C and vit D - repeat cxr pending - CMP, CBC, Mg in AM # Elevated D-dimer, mild 451, Wells score for PE 1.5 low risk - continue enoxaparin for now - Platelets within normal limits - Monitor # Leukopenia - improving # Thrombocytopenia - resolved, within normal limits # Hypothyroidism - per chart review last TSH 05/15/2021 was 14.71 - TSH on 07/24 was 3.667 - Continue levothyroxine Chronic, stable conditions: # none Hospitalization details: # FEN: discontinue NS 125mL/hr; electrolytes stable; tolerating oral intake # PPX: enoxaparin, monitor platelets # Code status: Full # Emergency contact: Andi spouse # Disposition: home after course of remdesivir, approx four midnights
--- NOTE | 2021-07-24 11:25 | CR ---
[id number] RAD/RAD Chest PA or AP 1V EXAM: FRONTAL CHEST INDICATION: INCREASING 02 NEEDS. COMPARISON: July 22, 2021. DISCUSSION: Multifocal moderate patchy basal predominant infiltrates have not appreciably changed. Borderline heart size without evidence of edema. Mild hyperaeration. No appreciable effusions. IMPRESSION: 1. Stable moderate patchy bilateral infiltrates. Josue Wilkinson MD 07/24/21 1123 Thank you for allowing us to participate in the care of your patient.
[2021-07-24] MEDS: Dexamethasone 10 MG/ML SDV IVPUSH SCH (20:38)
[2021-07-24] MEDS: REMDESIVIR 100 MG in Sodium Chloride 0.9% 250 ML IV SCH (20:39)
[2021-07-25] MEDS: Levothyroxine 50 MCG Tab PO SCH ×2 (05:37→06:35)
[2021-07-25 07:59] LABS: ANION GAP 12.2 mmol/L (5-15); CHLORIDE,CL 105 mmol/L (98-107); SODIUM,NA 141 mmol/L (136-145)
[2021-07-25] MEDS: Cholecalciferol (Vitamin D3) 25 MCG Tab PO SCH (09:16)
[2021-07-25] MEDS: Zinc (Zinc Gluconate) 50 MG Tab PO SCH (09:16)
[2021-07-25] MEDS: Enoxaparin 40 MG/0.4 ML Syringe SUBCUT SCH (09:16)
[2021-07-25] MEDS: Ascorbic Acid 500 MG Tab PO SCH ×2 (09:16→21:01)
[2021-07-25] MEDS: Albuterol 8 GM Inhaler INH PRN (09:17)
--- NOTE | 2021-07-25 09:53 | PCM.PN ---
- General Info Date of Service: 07/25/21 - Review of Systems Systems Review Comment:: General: Reports: Fatigue, Decreased Appetite HEENT: Reports: Headaches, Sore Throat (improving) Pulmonary: Reports: Pleuritic chest pain over the anterior right lower chest, on supplemental oxygen, Cough (improving) Cardiovascular: Denies: Chest Pain, Palpitations, Edema Gastrointestinal: Reports: Decreased Appetite. Denies: Abdominal Pain, Bloody Stool, Constipation, Diarrhea, Nausea, Vomiting Genitourinary: Denies: Dysuria, Frequency, Urgency, Hematuria Musculoskeletal: Denies: Neck Pain, Back Pain, Joint Swelling Skin: Denies: Pallor, Bruising, Rash Psychiatric: Anxiety intermittently. Denies: Confusion, Depression - Patient Data Vitals - Most Recent: Last Vital Signs Temp 97.0 F 07/25/21 05:52 Pulse 70 07/25/21 05:52 Resp 20 07/25/21 05:52 BP 115/72 07/25/21 05:52 Pulse Ox 94 L 07/25/21 05:52 Weight - Most Recent: 126 lb 2 oz I&O - Last 24 Hours: Intake & Output 07/24/21 07/25/21 07/25/21 22:59 06:59 14:59 Intake Total 641 380 Output Total 300 800 Balance 341 -420 Lab Results Last 24 Hours: Laboratory Results - last 24 hr 07/23/21 07/24/21 07/24/21 Range/Units 08:00 07:00 08:00 WBC (5.00-10.00) 10^3/uL RBC (3.80-5.50) 10^6/uL Hgb (12.0-16.0) g/dL Hct (37.0-47.0) % MCV (82.0-92.0) fL MCH (27.0-31.0) pg MCHC (32.0-36.0) g/dL RDW (11.5-14.5) % Plt Count (150-400) 10^3/uL MPV (7.4-10.4) fL Immature Gran % (Auto) (0.0-5.0) % Neut % (Auto) (50.0-70.0) % Lymph % (Auto) (20.0-40.0) % [place] % (Auto) (2.0-8.0) % Eos % (Auto) (1.0-3.0) % Baso % (Auto) (0.0-1.0) % Neut # (Auto) (2.50-7.00) 10^3/uL Lymph # (Auto) (1.00-4.00) 10^3/uL [place] # (Auto) (0.10-0.80) 10^3/uL Eos # (Auto) (0.10-0.30) 10^3/uL Baso # (Auto) (0.00-0.10) 10^3/uL Immature Gran # (Auto) (0.00-0.50) 10^3/uL Sodium (136-145) mmol/L Potassium (3.5-5.1) mmol/L Chloride (98-107) mmol/L Carbon Dioxide (21.0-32.0) mmol/L Anion Gap (5-15) mmol/L BUN (7-18) mg/dL Creatinine (0.51-1.17) mg/dL Est Cr Clr Drug Dosing mL/min Estimated GFR (MDRD) mL/min Glucose (70-140) mg/dL Calcium (8.7-10.3) mg/dL Magnesium (1.8-2.4) mg/dL Ferritin 622 H (11-307) ng/mL Total Bilirubin (0.2-1.0) mg/dL AST (15-37) U/L ALT (14-63) U/L Alkaline Phosphatase (46-116) U/L Total Protein (6.4-8.2) g/dL Albumin (3.40-5.00) g/dL Procalcitonin <0.05 ng/mL TSH, Ultra Sensitive 3.667 (0.340-4.820) uIU/mL 07/25/21 07/25/21 Range/Units 07:15 07:15 WBC 2.55 L (5.00-10.00) 10^3/uL RBC 4.79 (3.80-5.50) 10^6/uL Hgb 14.6 (12.0-16.0) g/dL Hct 43.8 (37.0-47.0) % MCV 91.4 (82.0-92.0) fL MCH 30.5 (27.0-31.0) pg MCHC 33.3 (32.0-36.0) g/dL RDW 11.6 (11.5-14.5) % Plt Count 222 (150-400) 10^3/uL MPV 10.3 (7.4-10.4) fL Immature Gran % (Auto) 0.4 (0.0-5.0) % Neut % (Auto) 75.6 H (50.0-70.0) % Lymph % (Auto) 16.9 L (20.0-40.0) % [place] % (Auto) 7.1 (2.0-8.0) % Eos % (Auto) 0.0 L (1.0-3.0) % Baso % (Auto) 0.0 (0.0-1.0) % Neut # (Auto) 1.93 L (2.50-7.00) 10^3/uL Lymph # (Auto) 0.43 L (1.00-4.00) 10^3/uL [place] # (Auto) 0.18 (0.10-0.80) 10^3/uL Eos # (Auto) 0.00 L (0.10-0.30) 10^3/uL Baso # (Auto) 0.00 (0.00-0.10) 10^3/uL Immature Gran # (Auto) 0.01 (0.00-0.50) 10^3/uL Sodium 141 (136-145) mmol/L Potassium 3.7 (3.5-5.1) mmol/L Chloride 105 (98-107) mmol/L Carbon Dioxide 27.5 (21.0-32.0) mmol/L Anion Gap 12.2 (5-15) mmol/L BUN 13 (7-18) mg/dL Creatinine 0.50 L (0.51-1.17) mg/dL Est Cr Clr Drug Dosing 131.89 mL/min Estimated GFR (MDRD) > 60 mL/min Glucose 138 (70-140) mg/dL Calcium 7.5 L (8.7-10.3) mg/dL Magnesium 2.2 (1.8-2.4) mg/dL Ferritin (11-307) ng/mL Total Bilirubin 0.3 (0.2-1.0) mg/dL AST 53 H (15-37) U/L ALT 46 (14-63) U/L Alkaline Phosphatase 37 L (46-116) U/L Total Protein 5.8 L (6.4-8.2) g/dL Albumin 2.37 L (3.40-5.00) g/dL Procalcitonin ng/mL TSH, Ultra Sensitive (0.340-4.820) uIU/mL Med Orders - Current: Current Medications Acetaminophen (Acetaminophen 325 Mg Tab) 650 mg PO Q4H PRN PRN Reason: Pain Last Admin: 07/24/21 20:37 Dose: 650 mg Documented by: Albuterol (Albuterol 8 Gm Inhaler) 0 gm INH Q4H PRN PRN Reason: Shortness of Breath Last Admin: 07/25/21 09:17 Dose: 2 puff Documented by: Ascorbic Acid (Ascorbic Acid 500 Mg Tab) 1,000 mg PO BID [facility] Last Admin: 07/25/21 09:16 Dose: 1,000 mg Documented by: Atropine Sulfate (Atropine 0.1 Mg/Ml 10 Ml Syringe) 0.5 - 1 mg IVPUSH ASDIRECTED PRN PRN Reason: Heart. Benzonatate (Benzonatate 100 Mg Cap) 100 mg PO ASDIRECTED PRN PRN Reason: Cough Cholecalciferol (Cholecalciferol (Vitamin D3) 25 Mcg Tab) 25 mcg PO DAILY [facility] Last Admin: 07/25/21 09:16 Dose: 25 mcg Documented by: Dexamethasone (Dexamethasone 10 Mg/Ml Sdv) 6 mg IVPUSH Q24H [facility] Last Admin: 07/24/21 20:38 Dose: 6 mg Documented by: Enoxaparin Sodium (Enoxaparin 40 Mg/0.4 Ml Syringe) 40 mg SUBCUT DAILY [facility] Last Admin: 07/25/21 09:16 Dose: 40 mg Documented by: Epinephrine HCl (Epinephrine 0.3 Mg/0.3 Ml Pen Autoinjector) 0.3 mg IM ASDIRECTED PRN PRN Reason: Bee Stings Epinephrine HCl (Epinephrine 1:10,000 1 Mg/10 Ml Syringe) 1 mg IVPUSH ASDIRECTED PRN PRN Reason: Heart. Remdesivir 100 mg/ Sodium (Chloride) 250 mls @ 250 mls/hr IV Q24H [facility] Stop: 07/26/21 20:31 Last Admin: 07/24/21 20:39 Dose: 250 mls/hr Documented by: Levothyroxine Sodium (Levothyroxine 50 Mcg Tab) 175 mcg PO ACBREAKFAST [facility] Last Admin: 07/25/21 06:35 Dose: Not Given Documented by: Lidocaine HCl (Lidocaine 2% 100 Mg/5 Ml Syringe) 0 mg IVPUSH ASDIRECTED PRN PRN Reason: Heart. Nitroglycerin (Nitroglycerin 0.4 Mg Tab.Sl) 0.4 mg SL ASDIRECTED PRN PRN Reason: Heart. Ondansetron HCl (Ondansetron 4 Mg Tab.Dis) 8 mg PO Q6H PRN PRN Reason: nausea, able to take PO Sodium Chloride (Sodium Chloride 0.9% 10 Ml Syringe) 10 ml FLUSH Q8HR PRN PRN Reason: keep vein open Zinc Gluconate (Zinc (Zinc Gluconate) 50 Mg Tab) 50 mg PO DAILY [facility] Last Admin: 07/25/21 09:16 Dose: 50 mg Documented by: Discontinued Medications Acetaminophen (Acetaminophen 500 Mg Tab) 1,000 mg PO ONETIME ONE Stop: 07/22/21 18:10 Last Admin: 07/22/21 18:15 Dose: 1,000 mg Documented by: Acetaminophen (Acetaminophen 325 Mg Tab) 650 mg PO Q4H PRN PRN Reason: Pain (Mild 1-3)/fever Sodium Chloride (Normal Saline) 1,000 mls @ 999 mls/hr IV .BOLUS ONE Stop: 07/22/21 18:00 Last Admin: 07/22/21 17:12 Dose: 999 mls/hr Documented by: Sodium Chloride (Normal Saline) 1,000 mls @ 125 mls/hr IV ASDIRECTED [facility] Last Admin: 07/24/21 06:24 Dose: 125 mls/hr Documented by: Remdesivir 200 mg/ Sodium (Chloride) 250 mls @ 250 mls/hr IV ONETIME ONE Stop: 07/22/21 20:19 Last Admin: 07/22/21 21:35 Dose: 250 mls/hr Documented by: Non-Formulary Medication (Levothyroxine [Levothyroxine]) 175 mcg PO ACBREAKFAST [facility] - Exam Physical Findings Comments:: GENERAL: Patient alert, in no acute distress. HEENT: Normocephalic, atraumatic. Conjunctiva clear. Nares patent without discharge. Mucous membranes moist, posterior pharynx unremarkable. NECK: Supple, no masses. CV: Regular rate and rhythm, no murmurs, rubs, or gallops. 2+ radial pulses. PULMONARY: On 5L supplemental Oxygen, normal effort, diminished breath sounds bilaterally. ABDOMEN: Positive bowel sounds, soft, nontender, nondistended. EXTREMITIES: No edema, cyanosis, or clubbing. MUSCULOSKELETAL: Moves all extremities well. NEUROLOGICAL: No obvious deficits. DERMATOLOGIC: No rashes or suspicious lesions in exposed areas. PSYCHIATRIC: Alert, interactive, appropriate affect. - Patient Data Lab Results Last 24 hrs: Laboratory Results - last 24 hr 07/23/21 07/24/21 07/24/21 Range/Units 08:00 07:00 08:00 WBC (5.00-10.00) 10^3/uL RBC (3.80-5.50) 10^6/uL Hgb (12.0-16.0) g/dL Hct (37.0-47.0) % MCV (82.0-92.0) fL MCH (27.0-31.0) pg MCHC (32.0-36.0) g/dL RDW (11.5-14.5) % Plt Count (150-400) 10^3/uL MPV (7.4-10.4) fL Immature Gran % (Auto) (0.0-5.0) % Neut % (Auto) (50.0-70.0) % Lymph % (Auto) (20.0-40.0) % [place] % (Auto) (2.0-8.0) % Eos % (Auto) (1.0-3.0) % Baso % (Auto) (0.0-1.0) % Neut # (Auto) (2.50-7.00) 10^3/uL Lymph # (Auto) (1.00-4.00) 10^3/uL [place] # (Auto) (0.10-0.80) 10^3/uL Eos # (Auto) (0.10-0.30) 10^3/uL Baso # (Auto) (0.00-0.10) 10^3/uL Immature Gran # (Auto) (0.00-0.50) 10^3/uL Sodium (136-145) mmol/L Potassium (3.5-5.1) mmol/L Chloride (98-107) mmol/L Carbon Dioxide (21.0-32.0) mmol/L Anion Gap (5-15) mmol/L BUN (7-18) mg/dL Creatinine (0.51-1.17) mg/dL Est Cr Clr Drug Dosing mL/min Estimated GFR (MDRD) mL/min Glucose (70-140) mg/dL Calcium (8.7-10.3) mg/dL Magnesium (1.8-2.4) mg/dL Ferritin 622 H (11-307) ng/mL Total Bilirubin (0.2-1.0) mg/dL AST (15-37) U/L ALT (14-63) U/L Alkaline Phosphatase (46-116) U/L Total Protein (6.4-8.2) g/dL Albumin (3.40-5.00) g/dL Procalcitonin <0.05 ng/mL TSH, Ultra Sensitive 3.667 (0.340-4.820) uIU/mL 07/25/21 07/25/21 Range/Units 07:15 07:15 WBC 2.55 L (5.00-10.00) 10^3/uL RBC 4.79 (3.80-5.50) 10^6/uL Hgb 14.6 (12.0-16.0) g/dL Hct 43.8 (37.0-47.0) % MCV 91.4 (82.0-92.0) fL MCH 30.5 (27.0-31.0) pg MCHC 33.3 (32.0-36.0) g/dL RDW 11.6 (11.5-14.5) % Plt Count 222 (150-400) 10^3/uL MPV 10.3 (7.4-10.4) fL Immature Gran % (Auto) 0.4 (0.0-5.0) % Neut % (Auto) 75.6 H (50.0-70.0) % Lymph % (Auto) 16.9 L (20.0-40.0) % [place] % (Auto) 7.1 (2.0-8.0) % Eos % (Auto) 0.0 L (1.0-3.0) % Baso % (Auto) 0.0 (0.0-1.0) % Neut # (Auto) 1.93 L (2.50-7.00) 10^3/uL Lymph # (Auto) 0.43 L (1.00-4.00) 10^3/uL [place] # (Auto) 0.18 (0.10-0.80) 10^3/uL Eos # (Auto) 0.00 L (0.10-0.30) 10^3/uL Baso # (Auto) 0.00 (0.00-0.10) 10^3/uL Immature Gran # (Auto) 0.01 (0.00-0.50) 10^3/uL Sodium 141 (136-145) mmol/L Potassium 3.7 (3.5-5.1) mmol/L Chloride 105 (98-107) mmol/L Carbon Dioxide 27.5 (21.0-32.0) mmol/L Anion Gap 12.2 (5-15) mmol/L BUN 13 (7-18) mg/dL Creatinine 0.50 L (0.51-1.17) mg/dL Est Cr Clr Drug Dosing 131.89 mL/min Estimated GFR (MDRD) > 60 mL/min Glucose 138 (70-140) mg/dL Calcium 7.5 L (8.7-10.3) mg/dL Magnesium 2.2 (1.8-2.4) mg/dL Ferritin (11-307) ng/mL Total Bilirubin 0.3 (0.2-1.0) mg/dL AST 53 H (15-37) U/L ALT 46 (14-63) U/L Alkaline Phosphatase 37 L (46-116) U/L Total Protein 5.8 L (6.4-8.2) g/dL Albumin 2.37 L (3.40-5.00) g/dL Procalcitonin ng/mL TSH, Ultra Sensitive (0.340-4.820) uIU/mL Result Diagrams: 07/25/21 07:15 07/25/21 07:15 Sepsis Event Note - Evaluation Sepsis Screening Result: No Definite Risk - Focused Exam Vital Signs: Vital Signs Temp Pulse Resp BP Pulse Ox 07/25/21 05:52 97.0 F 70 20 115/72 94 L 07/25/21 03:00 96.9 F 70 20 109/76 95 07/24/21 23:00 97.9 F 87 22 H 104/72 92 L - Problem List Review Problem List Initiated/Reviewed/Updated: Yes - My Orders Last 24 Hours: My Active Orders 07/26/21 05:11 CBC WITH AUTO DIFF [HEME] AM CMP [COMPREHENSIVE METABOLIC PN,CMP] [CHEM] AM MAGNESIUM [CHEM] AM - Plan Plan:: HPI summary: 40 year old female admitted inpatient for COVID 19 pneumonia and hypoxia from ED on 07/22/2021. Symptoms started on 07/15/2021 and patient tested positive the following day. She had been doing ok at home when over the last 48 hours developed severe fatigue and some shortness of breath. She presented to the ED via personal car with who is also COVID positive and was subsequently admitted for hypoxia. No COVID vaccine. Did not receive antibody infusion. ED course: -VS: T97.2, P 83, R18, BP 106/64, O2 sat 88%/RA; oxygen started -EKG: NSR -Lab: WBC 3.01, RBC 4.98, Hgb 15, Hct 45.7, Plt 125, Neut 73.1%, D-dimer 451, Na 138, K 3.9, Cl 99, Co2 27.6, anion gap 15.3, BUN 20, cr 0.92, GFR >60, lactic 0.9, Ca 7.5, LFT unremarkable, Alb 2.81 -CXR: multifocal bilateral infiltrates -NS 1000mL bolus -Remdesivir, Dexamethasone and enoxaparin initiated Hospital course: 07/23/2021: No overnight concerns per patient. Shortness of breath improving. Has begun eating and drinking. Decreased taste/smell. Afebrile. 92% on 3L/NC. WBC 1.49, Plt 111, anion gap 16.8, Ca 6.9, AST 47. Procalcitonin pending. Leukopenia and thrombocytopenia will be followed. 07/24/2021: Afebrile. Patient has been requiring 6L supplemental oxygen since last evening, satting at 91%. Repeat chest xray pending. IVF at 125ml/hr discontinued. Has not been consuming adequate oral hydration, advised to increase oral hydration. Anion gap normalized. WBC improving and plt within normal limits. TSH within normal limits. 07/25/2021: No acute events overnight. Afebrile. Patient reports her sore throat and cough are improving. She still has the pleuritic chest pain. Patient was up to go to the bathroom this morning and her O2 sat was at 88% and came up to 95% with rest. She is on 5L supplemental oxygen now. She reports she has no appetite and does not eat even 50% of her meals. She is trying to drink fluids. Per nursing staff, she came up to 750ml twice on her IS but mostly at 500ml. Hospitalization problems and plan: # Acute hypoxic respiratory failure, R/T COVID 19 pneumonia - oxygen, at 5L today - albuterol inhaler - Remdesivir, dexamethasone, oral ondansetron - oral zinc, vit C and vit D - repeat cxr on 07/24 showed stable infiltrates - CMP, CBC, Mg in AM # Elevated D-dimer, mild 451, Wells score for PE 1.5 low risk - continue enoxaparin for now - Platelets within normal limits - Monitor # Leukopenia - improving # Thrombocytopenia - resolved, within normal limits # Hypothyroidism - per chart review last TSH 05/15/2021 was 14.71 - TSH on 07/24 was 3.667 - Continue levothyroxine Chronic, stable conditions: # none Hospitalization details: # FEN: Not on IVF; electrolytes stable; tolerating oral intake # PPX: enoxaparin, monitor platelets # Code status: Full # Emergency contact: Andi spouse # Disposition: home after course of remdesivir, approx four midnights
[2021-07-25] MEDS ORDERED: Sodium Chloride 0.9% 100 ML IV SCH (20:00)
[2021-07-25] MEDS: REMDESIVIR 100 MG in Sodium Chloride 0.9% 250 ML IV SCH (20:53)
[2021-07-25] MEDS: Dexamethasone 10 MG/ML SDV IVPUSH SCH (20:58)
[2021-07-26] MEDS: Levothyroxine 50 MCG Tab PO SCH ×2 (06:17→06:30)
[2021-07-26 08:16] LABS: ANION GAP 12.4 mmol/L (5-15); CHLORIDE,CL 104 mmol/L (98-107); SODIUM,NA 140 mmol/L (136-145)
[2021-07-26] MEDS: Ascorbic Acid 500 MG Tab PO SCH ×2 (08:19→21:57)
[2021-07-26] MEDS: Zinc (Zinc Gluconate) 50 MG Tab PO SCH (08:20)
[2021-07-26] MEDS: Cholecalciferol (Vitamin D3) 25 MCG Tab PO SCH (08:20)
[2021-07-26] MEDS: Enoxaparin 40 MG/0.4 ML Syringe SUBCUT SCH (08:20)
[2021-07-26] MEDS ORDERED: guaiFENesin/Dextromethorphan 100-10 MG/5 ML Soln 5 ML Cup PO PRN (09:36)
--- NOTE | 2021-07-26 09:41 | PCM.PN ---
- General Info Date of Service: 07/26/21 - Review of Systems Systems Review Comment:: General: Reports: Fatigue, Decreased Appetite HEENT: Reports: Headaches, Sore Throat (improving) Pulmonary: Reports: Pleuritic chest pain over the anterior right lower chest, on supplemental oxygen, Cough (coughing fits with deep breaths) Cardiovascular: Denies: Chest Pain, Palpitations, Edema Gastrointestinal: Reports: Decreased Appetite. Denies: Abdominal Pain, Bloody Stool, Constipation, Diarrhea, Nausea, Vomiting Genitourinary: Denies: Dysuria, Frequency, Urgency, Hematuria Musculoskeletal: Denies: Neck Pain, Back Pain, Joint Swelling Skin: Denies: Pallor, Bruising, Rash Psychiatric: Anxiety intermittently. Denies: Confusion, Depression - Patient Data Vitals - Most Recent: Last Vital Signs Temp 96.6 F L 07/26/21 06:47 Pulse 78 07/26/21 06:47 Resp 20 07/26/21 01:59 BP 105/82 07/26/21 06:47 Pulse Ox 94 L 07/26/21 06:47 Weight - Most Recent: 126 lb 2 oz I&O - Last 24 Hours: Intake & Output 07/25/21 07/26/21 07/26/21 22:59 06:59 14:59 Intake Total 430 Output Total 300 Balance -300 430 Lab Results Last 24 Hours: Laboratory Results - last 24 hr 07/26/21 07/26/21 Range/Units 07:15 07:15 WBC 2.52 L (5.00-10.00) 10^3/uL RBC 5.00 (3.80-5.50) 10^6/uL Hgb 15.2 (12.0-16.0) g/dL Hct 45.5 (37.0-47.0) % MCV 91.0 (82.0-92.0) fL MCH 30.4 (27.0-31.0) pg MCHC 33.4 (32.0-36.0) g/dL RDW 11.4 L (11.5-14.5) % Plt Count 232 (150-400) 10^3/uL MPV 9.9 (7.4-10.4) fL Immature Gran % (Auto) 0.4 (0.0-5.0) % Neut % (Auto) 71.5 H (50.0-70.0) % Lymph % (Auto) 21.0 (20.0-40.0) % [place] % (Auto) 7.1 (2.0-8.0) % Eos % (Auto) 0.0 L (1.0-3.0) % Baso % (Auto) 0.0 (0.0-1.0) % Neut # (Auto) 1.80 L (2.50-7.00) 10^3/uL Lymph # (Auto) 0.53 L (1.00-4.00) 10^3/uL [place] # (Auto) 0.18 (0.10-0.80) 10^3/uL Eos # (Auto) 0.00 L (0.10-0.30) 10^3/uL Baso # (Auto) 0.00 (0.00-0.10) 10^3/uL Immature Gran # (Auto) 0.01 (0.00-0.50) 10^3/uL Sodium 140 (136-145) mmol/L Potassium 4.0 (3.5-5.1) mmol/L Chloride 104 (98-107) mmol/L Carbon Dioxide 27.6 (21.0-32.0) mmol/L Anion Gap 12.4 (5-15) mmol/L BUN 13 (7-18) mg/dL Creatinine 0.45 L (0.51-1.17) mg/dL Est Cr Clr Drug Dosing 146.55 mL/min Estimated GFR (MDRD) > 60 mL/min Glucose 132 (70-140) mg/dL Calcium 7.6 L (8.7-10.3) mg/dL Magnesium 2.2 (1.8-2.4) mg/dL Total Bilirubin 0.4 (0.2-1.0) mg/dL AST 83 H (15-37) U/L ALT 94 H (14-63) U/L Alkaline Phosphatase 43 L (46-116) U/L Total Protein 5.9 L (6.4-8.2) g/dL Albumin 2.43 L (3.40-5.00) g/dL Med Orders - Current: Current Medications Acetaminophen (Acetaminophen 325 Mg Tab) 650 mg PO Q4H PRN PRN Reason: Pain Last Admin: 07/24/21 20:37 Dose: 650 mg Documented by: Albuterol (Albuterol 8 Gm Inhaler) 0 gm INH Q4H PRN PRN Reason: Shortness of Breath Last Admin: 07/25/21 09:17 Dose: 2 puff Documented by: Ascorbic Acid (Ascorbic Acid 500 Mg Tab) 1,000 mg PO BID [facility] Last Admin: 07/26/21 08:19 Dose: 1,000 mg Documented by: Atropine Sulfate (Atropine 0.1 Mg/Ml 10 Ml Syringe) 0.5 - 1 mg IVPUSH ASDIRECTED PRN PRN Reason: Heart. Cholecalciferol (Cholecalciferol (Vitamin D3) 25 Mcg Tab) 25 mcg PO DAILY [facility] Last Admin: 07/26/21 08:20 Dose: 25 mcg Documented by: Dexamethasone (Dexamethasone 10 Mg/Ml Sdv) 6 mg IVPUSH Q24H [facility] Last Admin: 07/25/21 20:58 Dose: 6 mg Documented by: Enoxaparin Sodium (Enoxaparin 40 Mg/0.4 Ml Syringe) 40 mg SUBCUT DAILY [facility] Last Admin: 07/26/21 08:20 Dose: 40 mg Documented by: Epinephrine HCl (Epinephrine 0.3 Mg/0.3 Ml Pen Autoinjector) 0.3 mg IM ASDIRECTED PRN PRN Reason: Bee Stings Epinephrine HCl (Epinephrine 1:10,000 1 Mg/10 Ml Syringe) 1 mg IVPUSH ASDIRECTED PRN PRN Reason: Heart. Guaifenesin/Dextromethorphan (Guaifenesin/Dextromethorphan 100-10 Mg/5 Ml Soln 5 Ml Cup) 10 ml PO Q4H PRN PRN Reason: Cough Remdesivir 100 mg/ Sodium (Chloride) 250 mls @ 250 mls/hr IV Q24H [facility] Stop: 07/26/21 20:31 Last Admin: 07/25/21 20:53 Dose: 250 mls/hr Documented by: Sodium Chloride (Normal Saline) 100 mls @ 100 mls/hr IV ASDIRECTED [facility] Last Admin: 07/25/21 21:02 Dose: 100 mls/hr Documented by: Levothyroxine Sodium (Levothyroxine 50 Mcg Tab) 175 mcg PO ACBREAKFAST [facility] Last Admin: 07/26/21 06:30 Dose: Not Given Documented by: Lidocaine HCl (Lidocaine 2% 100 Mg/5 Ml Syringe) 0 mg IVPUSH ASDIRECTED PRN PRN Reason: Heart. Nitroglycerin (Nitroglycerin 0.4 Mg Tab.Sl) 0.4 mg SL ASDIRECTED PRN PRN Reason: Heart. Ondansetron HCl (Ondansetron 4 Mg Tab.Dis) 8 mg PO Q6H PRN PRN Reason: nausea, able to take PO Sodium Chloride (Sodium Chloride 0.9% 10 Ml Syringe) 10 ml FLUSH Q8HR PRN PRN Reason: keep vein open Zinc Gluconate (Zinc (Zinc Gluconate) 50 Mg Tab) 50 mg PO DAILY [facility] Last Admin: 07/26/21 08:20 Dose: 50 mg Documented by: Discontinued Medications Acetaminophen (Acetaminophen 500 Mg Tab) 1,000 mg PO ONETIME ONE Stop: 07/22/21 18:10 Last Admin: 07/22/21 18:15 Dose: 1,000 mg Documented by: Acetaminophen (Acetaminophen 325 Mg Tab) 650 mg PO Q4H PRN PRN Reason: Pain (Mild 1-3)/fever Benzonatate (Benzonatate 100 Mg Cap) 100 mg PO ASDIRECTED PRN PRN Reason: Cough Sodium Chloride (Normal Saline) 1,000 mls @ 999 mls/hr IV .BOLUS ONE Stop: 07/22/21 18:00 Last Admin: 07/22/21 17:12 Dose: 999 mls/hr Documented by: Sodium Chloride (Normal Saline) 1,000 mls @ 125 mls/hr IV ASDIRECTED [facility] Last Admin: 07/24/21 06:24 Dose: 125 mls/hr Documented by: Remdesivir 200 mg/ Sodium (Chloride) 250 mls @ 250 mls/hr IV ONETIME ONE Stop: 07/22/21 20:19 Last Admin: 07/22/21 21:35 Dose: 250 mls/hr Documented by: Non-Formulary Medication (Levothyroxine [Levothyroxine]) 175 mcg PO ACBREAKFAST [facility] - Exam Physical Findings Comments:: GENERAL: Patient alert, in no acute distress. Frustrated about her coughing fits with deep breaths. HEENT: Normocephalic, atraumatic. Conjunctiva clear. Nares patent without discharge. Mucous membranes moist, posterior pharynx unremarkable. NECK: Supple, no masses. CV: Regular rate and rhythm, no murmurs, rubs, or gallops. 2+ radial pulses. PULMONARY: On 5L supplemental Oxygen, normal effort, diminished breath sounds bilaterally. ABDOMEN: Positive bowel sounds, soft, nontender, nondistended. EXTREMITIES: No edema, cyanosis, or clubbing. MUSCULOSKELETAL: Moves all extremities well. NEUROLOGICAL: No obvious deficits. DERMATOLOGIC: No rashes or suspicious lesions in exposed areas. PSYCHIATRIC: Alert, interactive, appropriate affect. - Patient Data Lab Results Last 24 hrs: Laboratory Results - last 24 hr 07/26/21 07/26/21 Range/Units 07:15 07:15 WBC 2.52 L (5.00-10.00) 10^3/uL RBC 5.00 (3.80-5.50) 10^6/uL Hgb 15.2 (12.0-16.0) g/dL Hct 45.5 (37.0-47.0) % MCV 91.0 (82.0-92.0) fL MCH 30.4 (27.0-31.0) pg MCHC 33.4 (32.0-36.0) g/dL RDW 11.4 L (11.5-14.5) % Plt Count 232 (150-400) 10^3/uL MPV 9.9 (7.4-10.4) fL Immature Gran % (Auto) 0.4 (0.0-5.0) % Neut % (Auto) 71.5 H (50.0-70.0) % Lymph % (Auto) 21.0 (20.0-40.0) % [place] % (Auto) 7.1 (2.0-8.0) % Eos % (Auto) 0.0 L (1.0-3.0) % Baso % (Auto) 0.0 (0.0-1.0) % Neut # (Auto) 1.80 L (2.50-7.00) 10^3/uL Lymph # (Auto) 0.53 L (1.00-4.00) 10^3/uL [place] # (Auto) 0.18 (0.10-0.80) 10^3/uL Eos # (Auto) 0.00 L (0.10-0.30) 10^3/uL Baso # (Auto) 0.00 (0.00-0.10) 10^3/uL Immature Gran # (Auto) 0.01 (0.00-0.50) 10^3/uL Sodium 140 (136-145) mmol/L Potassium 4.0 (3.5-5.1) mmol/L Chloride 104 (98-107) mmol/L Carbon Dioxide 27.6 (21.0-32.0) mmol/L Anion Gap 12.4 (5-15) mmol/L BUN 13 (7-18) mg/dL Creatinine 0.45 L (0.51-1.17) mg/dL Est Cr Clr Drug Dosing 146.55 mL/min Estimated GFR (MDRD) > 60 mL/min Glucose 132 (70-140) mg/dL Calcium 7.6 L (8.7-10.3) mg/dL Magnesium 2.2 (1.8-2.4) mg/dL Total Bilirubin 0.4 (0.2-1.0) mg/dL AST 83 H (15-37) U/L ALT 94 H (14-63) U/L Alkaline Phosphatase 43 L (46-116) U/L Total Protein 5.9 L (6.4-8.2) g/dL Albumin 2.43 L (3.40-5.00) g/dL Result Diagrams: 07/26/21 07:15 07/26/21 07:15 Sepsis Event Note - Evaluation Sepsis Screening Result: No Definite Risk - Focused Exam Vital Signs: Vital Signs Temp Pulse Resp BP Pulse Ox 07/26/21 06:47 96.6 F L 78 105/82 94 L 07/26/21 01:59 97.3 F 71 20 113/90 92 L 07/25/21 22:39 96.9 F 70 20 113/69 91 L - Problem List Review Problem List Initiated/Reviewed/Updated: Yes - My Orders Last 24 Hours: My Active Orders 07/26/21 09:36 Dextromethorphan/guaiFENesin [Robitussin DM] 10 ml PO Q4H PRN - Plan Plan:: HPI summary: 40 year old female admitted inpatient for COVID 19 pneumonia and hypoxia from ED on 07/22/2021. Symptoms started on 07/15/2021 and patient tested positive the following day. She had been doing ok at home when over the last 48 hours deve loped severe fatigue and some shortness of breath. She presented to the ED via personal car with who is also COVID positive and was subsequently admitted for hypoxia. No COVID vaccine. Did not receive antibody infusion. ED course: -VS: T97.2, P 83, R18, BP 106/64, O2 sat 88%/RA; oxygen started -EKG: NSR -Lab: WBC 3.01, RBC 4.98, Hgb 15, Hct 45.7, Plt 125, Neut 73.1%, D-dimer 451, Na 138, K 3.9, Cl 99, Co2 27.6, anion gap 15.3, BUN 20, cr 0.92, GFR >60, lactic 0.9, Ca 7.5, LFT unremarkable, Alb 2.81 -CXR: multifocal bilateral infiltrates -NS 1000mL bolus -Remdesivir, Dexamethasone and enoxaparin initiated Hospital course: 07/23/2021: No overnight concerns per patient. Shortness of breath improving. Has begun eating and drinking. Decreased taste/smell. Afebrile. 92% on 3L/NC. WBC 1.49, Plt 111, anion gap 16.8, Ca 6.9, AST 47. Procalcitonin pending. Leukopenia and thrombocytopenia will be followed. 07/24/2021: Afebrile. Patient has been requiring 6L supplemental oxygen since last evening, satting at 91%. Repeat chest xray pending. IVF at 125ml/hr discontinued. Has not been consuming adequate oral hydration, advised to increase oral hydration. Anion gap normalized. WBC improving and plt within normal limits. TSH within normal limits. 07/25/2021: No acute events overnight. Afebrile. Patient reports her sore throat and cough are improving. She still has the pleuritic chest pain. Patient was up to go to the bathroom this morning and her O2 sat was at 88% and came up to 95% with rest. She is on 5L supplemental oxygen now. She reports she has no appetite and does not eat even 50% of her meals. She is trying to drink fluids[facility] she came up to 750ml twice on her IS but mostly at 500ml. 07/26/2021: Patient reports coughing fits when she tries to take a deep breath and feels like she cannot cough up the gunk. She states she has been feeling ill and has been coughing a lot since Apr for which she had multiple outpatient visits but no diagnosis was made. Will review previous visits notes. Has [facility] ordered as PRN but seems like she was not asking for it. Ordered Robitussin-DM today. Afebrile. Continues to be on 5L supplemental oxygen, satting at 94%. Nursing staff to walk patient today to assess for oxygen requirements. Will receive the last dose of Remdesivir this evening. Hospitalization problems and plan: # Acute hypoxic respiratory failure, R/T COVID 19 pneumonia - oxygen, at 5L today - albuterol inhaler - Remdesivir, dexamethasone, oral ondansetron - Robitussin-DM for cough - oral zinc, vit C and vit D - repeat cxr on 07/24 showed stable infiltrates - CMP, CBC, Mg in AM # Elevated D-dimer, mild 451, Wells score for PE 1.5 low risk - continue enoxaparin for now - Platelets within normal limits - Monitor # Leukopenia # Thrombocytopenia - resolved, within normal limits # Hypothyroidism - per chart review last TSH 05/15/2021 was 14.71 - TSH on 07/24 was 3.667 - Continue levothyroxine Chronic, stable conditions: # none Hospitalization details: # FEN: Not on IVF; electrolytes stable; tolerating oral intake # PPX: enoxaparin, monitor platelets # Code status: Full # Emergency contact: Andi spouse # Disposition: home after course of remdesivir, approx four midnights
[2021-07-26] MEDS: guaiFENesin/Dextromethorphan 100-10 MG/5 ML Soln 5 ML Cup PO SCH ×3 (10:28→21:57)
[2021-07-26] MEDS: REMDESIVIR 100 MG in Sodium Chloride 0.9% 250 ML IV SCH (21:56)
[2021-07-26] MEDS: Dexamethasone 10 MG/ML SDV IVPUSH SCH (21:56)
[2021-07-27] MEDS: guaiFENesin/Dextromethorphan 100-10 MG/5 ML Soln 5 ML Cup PO SCH ×2 (05:11→09:29)
[2021-07-27] MEDS: Levothyroxine 50 MCG Tab PO SCH (07:30)
[2021-07-27 08:16] LABS: ANION GAP 13.6 mmol/L (5-15); CHLORIDE,CL 103 mmol/L (98-107); SODIUM,NA 140 mmol/L (136-145)
[2021-07-27] MEDS: Cholecalciferol (Vitamin D3) 25 MCG Tab PO SCH (08:51)
[2021-07-27] MEDS: Zinc (Zinc Gluconate) 50 MG Tab PO SCH (08:51)
[2021-07-27] MEDS: Ascorbic Acid 500 MG Tab PO SCH (08:51)
[2021-07-27] MEDS: Enoxaparin 40 MG/0.4 ML Syringe SUBCUT SCH (08:51)
[2021-07-27] MEDS ORDERED: Dexamethasone 4 MG Tab PO SCH (10:22)
[2021-07-27 11:52] VITALS: BP 107/79; PULSE 67
--- NOTE | 2021-07-27 12:55 | PCM.DCSUM1 ---
Discharge Summary - Discharge Data Discharge Disposition: Home, Self-Care 01 Condition: Fair - Referral to Home Health Primary Care Physician: Chaya Burks NP - Patient Instructions Diet: Regular Diet as Tolerated Activity: As Tolerated Other/Special Instructions: Seek medical attention if oxygen saturation is less than 90% despite oxygen supplemenation or if having worsening shortness of breath or any new concerns. - Discharge Plan *PRESCRIPTION DRUG MONITORING PROGRAM REVIEWED*: Not Applicable *COPY OF PRESCRIPTION DRUG MONITORING REPORT IN PATIENT JEFF: Not Applicable Prescriptions/Med Rec: dexAMETHasone [Dexamethasone] 10 mg PO DAILY 5 Days #5 tablet Home Medications: Home Meds EPINEPHrine [Epipen] 0.3 mg IM ASDIRECTED PRN 11/21/17 [History] Acetaminophen [Tylenol] 650 mg PO Q4H PRN tablet 11/22/17 [Rx] Levothyroxine 175 mcg PO ACBREAKFAST #60 tablet 11/22/17 [Rx] Albuterol Sulfate [Albuterol Sulfate Hfa] 1 - 2 puff INH Q4HR PRN 07/19/21 [History] Benzonatate [Tessalon Perles] 100 mg PO ASDIRECTED PRN 07/19/21 [History] Ipratropium/Albuterol Sulfate [Iprat-Albut 0.5-3(2.5) MG/3 ML] 3 ml IH Q4HR PRN 07/19/21 [History] Naproxen Sodium [Aleve] 220 mg PO BID 07/19/21 [History] dexAMETHasone [Dexamethasone] 10 mg PO DAILY 5 Days #5 tablet 07/27/21 [Rx] Oxygen Therapy Mode: Nasal Cannula Oxygen Flow Rate (L/min): 4 Maintain SPO2% less than: 95 Maintain SpO2% greater than: 89 Referrals: Chaya Burks NP [Primary Care Provider] - (Schedule appt on 07/31/21.) - Patient Data Vitals - Most Recent: Last Vital Signs Temp 36.2 C 07/27/21 11:00 Pulse 67 07/27/21 11:00 Resp 16 07/27/21 11:00 BP 107/79 07/27/21 11:00 Pulse Ox 95 07/27/21 11:00 Weight - Most Recent: 57.209 kg I&O - Last 24 hours: Intake & Output 07/26/21 07/27/21 07/27/21 22:59 06:59 14:59 Intake Total 350 550 Balance 350 550 Lab Results - Last 24 hrs: Laboratory Results - last 24 hr 07/27/21 07/27/21 Range/Units 07:30 07:30 WBC 3.40 L (5.00-10.00) 10^3/uL RBC 5.07 (3.80-5.50) 10^6/uL Hgb 15.3 (12.0-16.0) g/dL Hct 45.6 (37.0-47.0) % MCV 89.9 (82.0-92.0) fL MCH 30.2 (27.0-31.0) pg MCHC 33.6 (32.0-36.0) g/dL RDW 11.5 (11.5-14.5) % Plt Count 264 (150-400) 10^3/uL MPV 9.8 (7.4-10.4) fL Immature Gran % (Auto) 0.3 (0.0-5.0) % Neut % (Auto) 76.4 H (50.0-70.0) % Lymph % (Auto) 16.8 L (20.0-40.0) % [place] % (Auto) 6.2 (2.0-8.0) % Eos % (Auto) 0.0 L (1.0-3.0) % Baso % (Auto) 0.3 (0.0-1.0) % Neut # (Auto) 2.60 (2.50-7.00) 10^3/uL Lymph # (Auto) 0.57 L (1.00-4.00) 10^3/uL [place] # (Auto) 0.21 (0.10-0.80) 10^3/uL Eos # (Auto) 0.00 L (0.10-0.30) 10^3/uL Baso # (Auto) 0.01 (0.00-0.10) 10^3/uL Immature Gran # (Auto) 0.01 (0.00-0.50) 10^3/uL Sodium 140 (136-145) mmol/L Potassium 3.9 (3.5-5.1) mmol/L Chloride 103 (98-107) mmol/L Carbon Dioxide 27.3 (21.0-32.0) mmol/L Anion Gap 13.6 (5-15) mmol/L BUN 13 (7-18) mg/dL Creatinine 0.48 L (0.51-1.17) mg/dL Est Cr Clr Drug Dosing 137.39 mL/min Estimated GFR (MDRD) > 60 mL/min Glucose 122 (70-140) mg/dL Calcium 7.5 L (8.7-10.3) mg/dL Magnesium 2.0 (1.8-2.4) mg/dL Total Bilirubin 0.5 (0.2-1.0) mg/dL AST 51 H (15-37) U/L ALT 88 H (14-63) U/L Alkaline Phosphatase 46 (46-116) U/L Total Protein 5.9 L (6.4-8.2) g/dL Albumin 2.45 L (3.40-5.00) g/dL Med Orders - Current: Current Medications Acetaminophen (Acetaminophen 325 Mg Tab) 650 mg PO Q4H PRN PRN Reason: Pain Last Admin: 07/24/21 20:37 Dose: 650 mg Documented by: Albuterol (Albuterol 8 Gm Inhaler) 0 gm INH Q4H PRN PRN Reason: Shortness of Breath Last Admin: 07/25/21 09:17 Dose: 2 puff Documented by: Ascorbic Acid (Ascorbic Acid 500 Mg Tab) 1,000 mg PO BID [facility] Last Admin: 07/27/21 08:51 Dose: 1,000 mg Documented by: Cholecalciferol (Cholecalciferol (Vitamin D3) 25 Mcg Tab) 25 mcg PO DAILY [facility] Last Admin: 07/27/21 08:51 Dose: 25 mcg Documented by: Dexamethasone (Dexamethasone 4 Mg Tab) 10 mg PO DAILY [facility] Last Admin: 07/27/21 10:50 Dose: 10 mg Documented by: Enoxaparin Sodium (Enoxaparin 40 Mg/0.4 Ml Syringe) 40 mg SUBCUT DAILY [facility] Last Admin: 07/27/21 08:51 Dose: 40 mg Documented by: Guaifenesin/Dextromethorphan (Guaifenesin/Dextromethorphan 100-10 Mg/5 Ml Soln 5 Ml Cup) 10 ml PO Q6H [facility] Last Admin: 07/27/21 09:29 Dose: 10 ml Documented by: Sodium Chloride (Normal Saline) 100 mls @ 100 mls/hr IV ASDIRECTED [facility] Last Admin: 07/25/21 21:02 Dose: 100 mls/hr Documented by: Levothyroxine Sodium (Levothyroxine 50 Mcg Tab) 175 mcg PO ACBREAKFAST [facility] Last Admin: 07/27/21 07:30 Dose: 175 mcg Documented by: Ondansetron HCl (Ondansetron 4 Mg Tab.Dis) 8 mg PO Q6H PRN PRN Reason: nausea, able to take PO Sodium Chloride (Sodium Chloride 0.9% 10 Ml Syringe) 10 ml FLUSH Q8HR PRN PRN Reason: keep vein open Zinc Gluconate (Zinc (Zinc Gluconate) 50 Mg Tab) 50 mg PO DAILY [facility] Last Admin: 07/27/21 08:51 Dose: 50 mg Documented by: Discontinued Medications Acetaminophen (Acetaminophen 500 Mg Tab) 1,000 mg PO ONETIME ONE Stop: 07/22/21 18:10 Last Admin: 07/22/21 18:15 Dose: 1,000 mg Documented by: Acetaminophen (Acetaminophen 325 Mg Tab) 650 mg PO Q4H PRN PRN Reason: Pain (Mild 1-3)/fever Atropine Sulfate (Atropine 0.1 Mg/Ml 10 Ml Syringe) 0.5 - 1 mg IVPUSH ASDIRECTED PRN PRN Reason: Heart. Benzonatate (Benzonatate 100 Mg Cap) 100 mg PO ASDIRECTED PRN PRN Reason: Cough Dexamethasone (Dexamethasone 10 Mg/Ml Sdv) 6 mg IVPUSH Q24H [facility] Last Admin: 07/26/21 21:56 Dose: 6 mg Documented by: Dexamethasone (Dexamethasone 4 Mg Tab) 10 mg PO DAILY [facility] Epinephrine HCl (Epinephrine 0.3 Mg/0.3 Ml Pen Autoinjector) 0.3 mg IM ASDIRECTED PRN PRN Reason: Bee Stings Epinephrine HCl (Epinephrine 1:10,000 1 Mg/10 Ml Syringe) 1 mg IVPUSH ASDIRECTED PRN PRN Reason: Heart. Guaifenesin/Dextromethorphan (Guaifenesin/Dextromethorphan 100-10 Mg/5 Ml Soln 5 Ml Cup) 10 ml PO Q4H PRN PRN Reason: Cough Sodium Chloride (Normal Saline) 1,000 mls @ 999 mls/hr IV .BOLUS ONE Stop: 07/22/21 18:00 Last Admin: 07/22/21 17:12 Dose: 999 mls/hr Documented by: Sodium Chloride (Normal Saline) 1,000 mls @ 125 mls/hr IV ASDIRECTED [facility] Last Admin: 07/24/21 06:24 Dose: 125 mls/hr Documented by: Remdesivir 200 mg/ Sodium (Chloride) 250 mls @ 250 mls/hr IV ONETIME ONE Stop: 07/22/21 20:19 Last Admin: 07/22/21 21:35 Dose: 250 mls/hr Documented by: Remdesivir 100 mg/ Sodium (Chloride) 250 mls @ 250 mls/hr IV Q24H [facility] Stop: 07/26/21 20:31 Last Admin: 07/26/21 21:56 Dose: 250 mls/hr Documented by: Lidocaine HCl (Lidocaine 2% 100 Mg/5 Ml Syringe) 0 mg IVPUSH ASDIRECTED PRN PRN Reason: Heart. Nitroglycerin (Nitroglycerin 0.4 Mg Tab.Sl) 0.4 mg SL ASDIRECTED PRN PRN Reason: Heart. Non-Formulary Medication (Levothyroxine [Levothyroxine]) 175 mcg PO ACBREAKFAST [facility]
[2021-07-28] MEDS ORDERED: Dexamethasone 4 MG Tab PO SCH (09:00)
== END 2021-07-27 14:25 | disposition home or self-care (01) | DRG 137 ==
LOC: KA.ED 16:35 → KA.MS 20:06
PROVIDERS: ADMIT Family Medicine; ATTEND Family Medicine
PROC: XW033E5 Introduction of Remdesivir Anti-infective into Peripheral Vein, Percutaneous Approach, New Technology Group 5 (ICD-10-PCS; principal; 2021-07-22)
PROC: 3E0333Z Introduction of Anti-inflammatory into Peripheral Vein, Percutaneous Approach (ICD-10-PCS; 2021-07-22)
DX: U07.1 COVID-19 (principal); J12.82 Pneumonia due to coronavirus disease 2019; H54.7 Unspecified visual loss; I45.10 Unspecified right bundle-branch block; K21.9 Gastro-esophageal reflux disease without esophagitis; F41.9 Anxiety disorder, unspecified; F32.A Depression, unspecified; J96.01 Acute respiratory failure with hypoxia; R79.89 Other specified abnormal findings of blood chemistry; D69.6 Thrombocytopenia, unspecified; D72.819 Decreased white blood cell count, unspecified; J43.1 Panlobular emphysema; E03.9 Hypothyroidism, unspecified; Z86.19 Personal history of other infectious and parasitic diseases; Z85.828 Personal history of other malignant neoplasm of skin; Z91.030 Bee allergy status; Z79.890 Hormone replacement therapy; Z79.899 Other long term (current) drug therapy; Z87.891 Personal history of nicotine dependence
CPT/HCPCS: 36415; 71045; 80053; 82728; 83605; 83735; 84145; 84443; 84484; 85025; 85379; 86140; 93005; 93010; 99284; 99285-25; A9270-GY; J1100; J1650; J7030; J7050; J8540

== ENCOUNTER 2022-01-11 00:50 | Emergency (ER) | payer BC ==
[2022-01-11 01:24] VITALS: BP 147/101; PULSE 75
== END 2022-01-11 01:45 | disposition home or self-care (01) ==
LOC: KA.ED 00:50
DX: J40 Bronchitis, not specified as acute or chronic (principal); E03.9 Hypothyroidism, unspecified; F17.210 Nicotine dependence, cigarettes, uncomplicated; Z86.16 Personal history of COVID-19; Z79.899 Other long term (current) drug therapy; Z91.030 Bee allergy status
CPT/HCPCS: 71046; 99284-25